=== PATIENT | female | born 1990 | race American Indian/Alaskan Native ===

== ENCOUNTER 2017-02-08 09:29 | Emergency (ER) | payer MEDICAID, OTHER ==
[2017-02-08 10:33] LABS: Hematocrit 38.2 % (30.3-42.9); Hemoglobin 12.8 gm/dl (10.1-14.3); Mean Corpuscular HGB Conc 34 % (30-34); Mean Corpuscular Hemoglobin 30 pg (28-32); Mean Corpuscular Volume 88 fl (79-97); Platelet Count 283 K/mm3 (140-440); Red Blood Count 4.31 M/mm3 (3.65-5.03); Red Cell Distribution Width 15.9 % (13.2-15.2); White Blood Count 4.8 K/mm3 (4.5-11.0)
[2017-02-08 11:08] LABS: Blastocytes % (Manual) 0 %
[2017-02-08 11:09] LABS: Diff Status Complete; RBC Morphology Normal
--- NOTE | 2017-02-08 11:49 | Ultrasound Report ---
ULTRASOUND OB LESS THAN 14 WEEKS FETUS ULTRASOUND OB TRANSVAGINAL HISTORY: Vaginal bleeding during . TECHNIQUE: Transabdominal and transvaginal ultrasound with color doppler interrogation. No comparison. The uterus measures 12 x 6 x 7 cm. No uterine mass. An intrauterine gestational sac containing a pole and yolk sac is identified. No heart rate could be detected on Doppler interrogation. [place]-rump length measures 17.8 mm which correlates with a 8 week, 2 day . Both ovaries are visualized. A 2.1 cm corpus luteum cyst in the left ovary is suspected. No pelvic fluid collection. IMPRESSION: Findings consistent with demise.
--- NOTE | 2017-02-08 11:49 | Ultrasound Report ---
ULTRASOUND OB LESS THAN 14 WEEKS FETUS ULTRASOUND OB TRANSVAGINAL HISTORY: Vaginal bleeding during . TECHNIQUE: Transabdominal and transvaginal ultrasound with color doppler interrogation. No comparison. The uterus measures 12 x 6 x 7 cm. No uterine mass. An intrauterine gestational sac containing a pole and yolk sac is identified. No heart rate could be detected on Doppler interrogation. [place]-rump length measures 17.8 mm which correlates with a 8 week, 2 day . Both ovaries are visualized. A 2.1 cm corpus luteum cyst in the left ovary is suspected. No pelvic fluid collection. IMPRESSION: Findings consistent with demise.
[2017-02-08 12:16] VITALS: BP 108/72
--- NOTE | 2017-02-08 12:19 | Emergency Department Report ---
HPI - General Chief Complaint: Urogenital-Female Time Seen by Provider: 02/08/17 11:31 - HPI HPI: 26 year-old female presents to the emergency department with a complaint of some light vaginal spotting/bleeding that started this morning while . The patient leaves she is about 9 weeks . She followed up with her AUTOMOTIVE HARDWARE ENGINEER, Dr. Arevalo, one week ago and had an ultrasound that allegedly was normal. She denies any abdominal pain or cramping. She is on vitamins. She has not taken anything for her symptoms. Presentation. She denies any fever, vomiting, dysuria, vaginal discharge. She is with one live child. No recent travel or sick contacts at home. ED Past Medical Hx - Past Medical History Previous Medical History?: Yes Hx Hypertension: No Hx Congestive Heart Failure: No Hx Diabetes: No Hx Deep Vein Thrombosis: No Hx Renal Disease: No Hx Sickle Cell Disease: No Hx Seizures: No Hx Asthma: No Hx COPD: No Hx HIV: No - Social History Smoking Status: Never Smoker Substance Use Type: None - Medications Home Medications: Home Medications Medication Instructions Recorded Confirmed Last Taken Type No Known Home Medications [No 03/20/14 03/20/14 Unknown History Reported Home Medications] ED Review of Systems ROS: Stated complaint: VAG BLEED/9WKS PREG Other details as noted in HPI Comment: All other systems reviewed and negative Constitutional: denies: chills, fever Eyes: denies: eye pain, eye discharge, vision change ENT: denies: ear pain, throat pain Respiratory: denies: cough, shortness of breath, wheezing Cardiovascular: denies: chest pain, palpitations Gastrointestinal: denies: abdominal pain, nausea, diarrhea Genitourinary: other (vaginal bleeding/spotting). denies: urgency, dysuria, discharge Musculoskeletal: denies: back pain, joint swelling, arthralgia Skin: denies: rash, lesions Neurological: denies: headache, weakness, paresthesias Physical Exam - Physical Exam Vital Signs: Vital Signs 02/08/17 02/08/17 09:46 12:15 Temperature 98.8 F 98 F Pulse Rate 83 77 Respiratory 20 18 Rate Blood Pressure 110/73 Blood Pressure 108/72 [Right] O2 Sat by Pulse 100 100 Oximetry Physical Exam: GENERAL: The patient is well-developed well-nourished. ENT: Normocephalic. Atraumatic. Patient has moist mucous membranes. EYES: Extraocular motions are intact. Pupils equal reactive to light bilaterally. NECK: Supple. Trachea is mid line. CHEST/LUNGS: Clear to auscultation. There is no respiratory distress noted. HEART/CARDIOVASCULAR: Regular rhythm. Regular rate. There is no gallop rub or murmur. ABDOMEN: Abdomen is soft, nontender. Patient has normal bowel sounds. There is no abdominal distention. SKIN: Skin is warm and dry. NEURO: The patient is awake, alert, and oriented. The patient is cooperative. The patient has no sensory or motor deficits. The patient has normal speech. MUSCULOSKELETAL: There is no tenderness or deformity. There is no limitation range of motion. There is no evidence of acute injury. ED Course Vital Signs 02/08/17 02/08/17 09:46 12:15 Temperature 98.8 F 98 F Pulse Rate 83 77 Respiratory 20 18 Rate Blood Pressure 110/73 Blood Pressure 108/72 [Right] O2 Sat by Pulse 100 100 Oximetry - Consultations Consultation #1: I spoke to the AUTOMOTIVE HARDWARE ENGINEER, Dr. Goode, call for Dr. Arevalo and she listened to the case presentation and says that the patient has an appointment already scheduled for tomorrow and therefore the patient is safe for discharge home to follow up with her appointment tomorrow where they will most likely repeat the ultrasound and do further evaluation. 02/08/17 18:06 ED Medical Decision Making - Lab Data Result diagrams: 02/08/17 10:13 - Radiology Data Radiology results: report reviewed Vaginal/obstetric ultrasound shows a gestational sac, yolk sac, and pole but there is no movement or heart rate with concern for demise. - Medical Decision Making 26-year-old female presents with some light vaginal spotting at about 9 weeks . Her beta hCG is only at 4400. There is no sign of urinary tract infection. Obstetric ultrasound shows concern for demise with a gestational sac, yolk sac, pole without movement or heart rate. Spoke with OB who says patient is safe for discharge home but should follow up with her scheduled appointment tomorrow. - Differential Diagnosis , threatened miscarriage, spontaneous miscarriage, demise Critical Care Time: No Critical care attestation.: If time is entered above; I have spent that time in minutes in the direct care of this critically ill patient, excluding procedure time. ED Disposition Clinical Impression: demise Disposition: DC-01 TO HOME OR SELFCARE Is pt being admited?: No Condition: Stable Instructions: Intrauterine Demise (ED) Additional Instructions: Follow-up with your AUTOMOTIVE HARDWARE ENGINEER tomorrow as previously scheduled. Return to the emergency Department with any worsening of your symptoms or any acute distress. Referrals: JOCELYN AREVALO MD [Staff Physician] - 02/09/17 Time of Disposition: 14:25
[2017-02-08 13:40] LABS: Bilirubin,Urine NEG (Negative); Blood,Urine NEG (Negative); Ketones,Urine TR mg/dL (Negative); Leukocyte Esterase,Urine NEG (Negative); Nitrite,Urine NEG (Negative); Protein,Urine <15 mg/dL mg/dL (Negative); RBC,Urine < 1.0 /HPF (0.0-6.0); Urobilinogen,Urine < 2.0 mg/dL (<2.0)
[2017-02-08 13:44] LABS: WBC,Urine < 1.0 /HPF (0.0-6.0)
== END 2017-02-08 14:44 | disposition home or self-care (01) ==
LOC: ED 09:29
DX: O26.851 Spotting complicating pregnancy, first trimester (principal); Z3A.09 9 weeks gestation of pregnancy
CPT/HCPCS: 36415; 76801; 76817; 81001; 84702; 84703; 85007; 85025; 86850; 86900; 86901

== ENCOUNTER 2018-01-31 19:42 | Outpatient (CLI) | payer MEDICAID, OTHER ==
[2018-01-31 20:34] VITALS: BP 132/77
[2018-01-31] MEDS ORDERED: LACTATED RINGERS 500 ML IV ONE (21:09)
== END 2018-01-31 21:45 | disposition home or self-care (01) ==
LOC: TRG 19:42
PROVIDERS: ATTEND Obstetrics & Gynecology
DX: O47.02 False labor before 37 completed weeks of gestation, second trimester (principal); O26.892 Other specified pregnancy related conditions, second trimester; R20.2 Paresthesia of skin; Z3A.28 28 weeks gestation of pregnancy; Z91.018 Allergy to other foods

== ENCOUNTER 2018-02-07 08:42 | Outpatient (CLI) | payer MEDICAID | END 2018-02-07 08:43 | disposition home or self-care (01) | LOC: VAS 08:42 | PROVIDERS: ATTEND Nurse Practitioner Women's Health | DX: M79.604 Pain in right leg (principal); M79.605 Pain in left leg; Z91.018 Allergy to other foods | CPT/HCPCS: 93970 ==

== ENCOUNTER 2018-03-22 22:29 | Inpatient (IN) | payer MEDICAID ==
[2018-03-22] MEDS ORDERED: LACTATED RINGERS 1,000 ML ONE (22:49)
[2018-03-22] MEDS ORDERED: LACTATED RINGERS 1,000 ML IV ONE (23:03)
[2018-03-23] MEDS ORDERED: BENADRYL PO PRN (00:23)
[2018-03-23] MEDS ORDERED: TYLENOL PO PRN (00:23)
[2018-03-23] MEDS ORDERED: MILK OF MAGNESIA PO PRN (00:23)
[2018-03-23] MEDS ORDERED: ZOFRAN IV PRN (00:23)
[2018-03-23] MEDS ORDERED: ALUM-MAG HYDROX-SIMETH 200-200-20MG/5ML PO PRN (00:23)
[2018-03-23] MEDS ORDERED: COLACE PO PRN (00:23)
[2018-03-23] MEDS ORDERED: DEEP SEA NS PRN (00:23)
[2018-03-23] MEDS ORDERED: AMBIEN PO PRN (00:23)
--- NOTE | 2018-03-23 00:33 | History and Physical Report ---
History of Present Illness Date of examination: 03/23/18 Chief complaint: cold symptoms, fever, ISIDRO and swollen feet History of present illness: EDC Calculations by LMP: 04/14/2018 Past History : 3 Term Births: 1 Premature Births: 0 Living Children: 1 Para: 1 Mult. Births: 0 Prev : 0 Prev. attempt? 0 Aborta: 1 Elect. Ab: 0 Spont. Ab: 1 Ectopics: 0 # 1 Delivery date: 03/21/2014 Weeks Gestation: 39 Delivery type: Vaginal Anesthesia type: epidural Delivery location: [facility] Infant Sex: female weight: 5.25 Comments: SGA # 2 Delivery date: 03/01/2017 Weeks Gestation: 8 Delivery type: SAB Comments: No D&C Past Medical History: Reviewed history from 06/30/2016 and no changes required: None Negative Past Medical History Past Surgical History: Reviewed history from 06/30/2016 and no changes required: None Negative Past Surgical History Family History Summary: Reviewed history Last on 01/22/2017 and no changes required:11/01/2017 Other family member - Has No Family History of Biliary Tract Cancer - Entered On : 06/30/2016 Other family member - Has No Family History of Breast Cancer - Entered On: 2016 Other family member - Has No Family History of Brain Cancer - Entered On: 2016 Other family member - Has No Family History of Colon Cancer - Entered On: 2016 Other family member - Has No Family History of DVT/PE on OCP - Entered On: 2016 Other family member - Has No Family History of Kidney/Urinary Tract Cancer - Entered On: 06/30/2016 Other family member - Has No Family History of Ovarvian Cancer - Entered On: 06/30 Other family member - Has No Family History of Pancreatic Cancer - Entered On: Other family member - Has No Family History of Stomach Cancer - Entered On: 2016 Other family member - Has No Family History of Small Bowel Cancer - Entered On: 06/30/2016 Other family member - Has No Family History of Uterine Cancer - Entered On: 2016 General Comments - FH: Family History of Hypertension- Mother No Family History of Breast Cancer No Family History of Cervical Cancer No Family History of Colon Cancer No Family History of Ovarvian Cancer No Family History of DVT/PE on OCP Social History: Patient is single student cosmetology Smoking History: Patient has never smoked. Risk Factors: Smoked Tobacco Use: Never smoker Drug use: no Alcohol use: yes Dietary Counseling: pn yes Past Medical History Abnormal PAP: negative Uterine Surgery (not C/S): negative Social Hx: Patient is single student cosmetology Smoking History: Patient has never smoked. Genetic History Congenital Heart Defect: Mom: no Dad: no Marcos Disease: Mom: no Dad: no Thalassemia Mom: no Dad: no Neural Tube Defect Mom: no Dad: no Down's Syndrome Mom: no Dad: no Byron-Sachs Mom: no Dad: no Sickle Cell Disease/Trait Mom: no Dad: no Hemophilia Mom: no Dad: no Muscular Dystrophy Mom: no Dad: no Cystic Fibrosis Mom: no Dad: no Joaquín Chorea Mom: no Dad: no Mental Retardation Mom: no Dad: no Fragile X Mom: no Dad: no Other Genetic/Chromosomal Disorder Mom: no Dad: no Child w/other defect Mom: no Dad: no Enviromental Exposures Xray Exposure: yes Exposure to Cat Liter: yes Active Medications (reviewed today): None Current Allergies (reviewed today): No known allergies Past History Past Medical History: no pertinent history Past Surgical History: no surgical history - Obstetrical History Expected Date of Delivery: 04/14/18 Actual Gestation: 36 Week(s) 6 Day(s) : 3 Para: 1 Hx # Term Pregnancies: 1 Number of Pregnancies: 0 Spontaneous Abortions: 1 Induced : 0 Number of Living Children: 1 Medications and Allergies Allergies Allergy/AdvReac Type Severity Reaction Status Date / Time banana [Banana] Allergy Itching Verified 03/20/14 18:27 Home Medications Medication Instructions Recorded Confirmed Last Taken Type No Known Home Medications [No 03/20/14 03/20/14 Unknown History Reported Home Medications] Review of Systems All systems: negative Constitutional: fever Ears, nose, mouth and throat: nasal congestion, headache Cardiovascular: edema (BLE) Respiratory: cough, congestion - Vital Signs Vital signs: Vital Signs Pulse BP 68 137/91 03/22/18 22:53 03/22/18 22:53 Temp Pulse Resp BP Pulse Ox 98.7 F 68 18 143/88 99 03/22/18 23:01 03/23/18 00:26 03/22/18 23:00 03/23/18 00:25 03/23/18 00:26 - Physical Exam Cardiovascular: Regular rate Lungs: Positive: Clear to auscultation, Normal air movement Abdomen: Positive: normal appearance Genitourinary (Female): Positive: normal external genitalia Vulva: both: normal Extremities: Positive: edema Deep Tendon Reflex Grade: Dull/Diminished +1 - Obstetrical FHR: auscultation normal Uterine Contraction Monitor Mode: External Results All other labs normal. Assessment and Plan 27 y/o @ 36+6 weeks gestation; seen in triage for ISIDRO & cold like symptoms x 1 day, fever tonight (pt states she felt warm but did not check temp with a thermometer.) Upon arrival, oral and axilary temps normal, BLE edema and labial b/p's noted. Plan to admit for obs, and 24h urine, along with supportive care for URI symptoms. pre-e labs ordered but not yet resulted. Dr. Starks updated on patient's status. Orders in EMR. - Patient Problems (1) 36 weeks gestation of Current Visit: Yes Status: Acute (2) Upper respiratory infection with cough and congestion Current Visit: Yes Status: Acute (3) Elevated blood pressure reading without diagnosis of hypertension Current Visit: Yes Status: Acute (4) GBS (group B Streptococcus carrier), +RV culture, currently Current Visit: Yes Status: Acute
[2018-03-23 01:00] LABS: Hematocrit 37.8 % (30.3-42.9); Hemoglobin 12.9 gm/dl (10.1-14.3); Mean Corpuscular HGB Conc 34 % (30-34); Mean Corpuscular Hemoglobin 32 pg (28-32); Mean Corpuscular Volume 95 fl (79-97); Platelet Count 255 K/mm3 (140-440); Red Blood Count 3.97 M/mm3 (3.65-5.03); Red Cell Distribution Width 14.9 % (13.2-15.2)
[2018-03-23] MEDS ORDERED: LACTATED RINGERS 1,000 ML IV SCH (01:00)
[2018-03-23 01:06] LABS: Bacteria,Urine 1+ /HPF (Negative); Bilirubin,Urine NEG (Negative); Blood,Urine NEG (Negative); Color,Urine Yellow (Yellow); Mucus,Urine FEW /HPF; Urobilinogen,Urine < 2.0 mg/dL (<2.0)
[2018-03-23 01:29] LABS: Alanine Aminotransferase 24 units/L (7-56)
[2018-03-23 02:56] LABS: Platelet Estimate Consistent w Auto; RBC Morphology Normal; Total Cells Counted 100
[2018-03-23 03:05] LABS: Uric Acid 5.6 mg/dL (3.5-7.6)
--- NOTE | 2018-03-23 09:22 | Progress Note ---
Assessment and Plan - Patient Problems (1) 36 weeks gestation of Current Visit: Yes Status: Acute (2) Elevated blood pressure reading without diagnosis of hypertension Current Visit: Yes Status: Acute Plan to address problem: 24ghour urine to be completed at [facility] Preeclampsia vs GHTN explained, indications for delivery and plan of care discussed, questions encouraged and answered, she voiced understanding and agrees with plan of care (3) GBS (group B Streptococcus carrier), +RV culture, currently Current Visit: Yes Status: Acute (4) Upper respiratory infection with cough and congestion Current Visit: Yes Status: Acute Subjective - Subjective Date of service: 03/23/18 Principal diagnosis: IUP@36 6/7wga, elevated BP's Patient reports: movement normal, no new complaints Objective - Vital Signs Vital Signs: Vital Signs - 12hr 03/22/18 03/22/18 03/22/18 22:53 23:00 23:01 Temperature 98.6 F 98.7 F Pulse Rate 68 Respiratory 18 Rate Blood Pressure 137/91 Blood Pressure [Right] O2 Sat by Pulse Oximetry 03/22/18 03/22/18 03/22/18 23:04 23:09 23:14 Temperature Pulse Rate 69 78 63 Respiratory Rate Blood Pressure Blood Pressure [Right] O2 Sat by Pulse 98 99 98 Oximetry 03/22/18 03/22/18 03/22/18 23:17 23:19 23:23 Temperature Pulse Rate 57 L 61 64 Respiratory Rate Blood Pressure 154/94 Blood Pressure [Right] O2 Sat by Pulse 99 99 Oximetry 03/22/18 03/22/18 03/22/18 23:24 23:28 23:34 Temperature Pulse Rate 65 69 66 Respiratory Rate Blood Pressure 133/93 Blood Pressure [Right] O2 Sat by Pulse 99 98 Oximetry 03/22/18 03/23/18 03/23/18 23:40 00:02 00:06 Temperature Pulse Rate 68 67 67 Respiratory Rate Blood Pressure 138/87 Blood Pressure [Right] O2 Sat by Pulse 99 98 Oximetry 03/23/18 03/23/18 03/23/18 00:09 00:11 00:16 Temperature Pulse Rate 66 67 65 Respiratory Rate Blood Pressure 131/87 Blood Pressure [Right] O2 Sat by Pulse 99 99 Oximetry 03/23/18 03/23/18 03/23/18 00:22 00:25 00:26 Temperature Pulse Rate 87 65 68 Respiratory Rate Blood Pressure 143/88 Blood Pressure [Right] O2 Sat by Pulse 98 99 Oximetry 03/23/18 03/23/18 03/23/18 00:31 00:36 00:41 Temperature Pulse Rate 62 64 69 Respiratory Rate Blood Pressure 139/91 Blood Pressure [Right] O2 Sat by Pulse 98 98 98 Oximetry 03/23/18 03/23/18 03/23/18 00:47 00:52 00:54 Temperature Pulse Rate 68 65 63 Respiratory Rate Blood Pressure 135/90 Blood Pressure [Right] O2 Sat by Pulse 98 99 Oximetry 03/23/18 03/23/18 03/23/18 00:56 00:58 02:08 Temperature Pulse Rate 64 59 L Respiratory 18 Rate Blood Pressure Blood Pressure [Right] O2 Sat by Pulse 98 98 Oximetry 03/23/18 03/23/18 03/23/18 02:13 02:26 02:31 Temperature Pulse Rate 63 72 75 Respiratory Rate Blood Pressure Blood Pressure [Right] O2 Sat by Pulse 97 90 95 Oximetry 03/23/18 03/23/18 03/23/18 02:34 02:36 02:41 Temperature Pulse Rate 78 70 68 Respiratory Rate Blood Pressure Blood Pressure [Right] O2 Sat by Pulse 94 95 95 Oximetry 03/23/18 03/23/18 03/23/18 02:45 02:46 02:51 Temperature Pulse Rate 78 62 67 Respiratory Rate Blood Pressure Blood Pressure [Right] O2 Sat by Pulse 93 96 96 Oximetry 03/23/18 03/23/18 03/23/18 02:56 02:59 03:01 Temperature Pulse Rate 61 70 68 Respiratory Rate Blood Pressure Blood Pressure [Right] O2 Sat by Pulse 97 93 96 Oximetry 03/23/18 03/23/18 03/23/18 03:06 03:11 03:12 Temperature Pulse Rate 65 69 66 Respiratory Rate Blood Pressure Blood Pressure [Right] O2 Sat by Pulse 96 95 93 Oximetry 03/23/18 03/23/18 03/23/18 03:16 03:21 03:26 Temperature Pulse Rate 63 65 67 Respiratory Rate Blood Pressure Blood Pressure [Right] O2 Sat by Pulse 96 95 96 Oximetry 03/23/18 03/23/18 03/23/18 03:31 03:36 03:38 Temperature Pulse Rate 66 70 64 Respiratory Rate Blood Pressure Blood Pressure [Right] O2 Sat by Pulse 95 95 94 Oximetry 03/23/18 03/23/18 03/23/18 03:41 03:46 03:49 Temperature Pulse Rate 65 69 63 Respiratory Rate Blood Pressure Blood Pressure [Right] O2 Sat by Pulse 95 95 94 Oximetry 03/23/18 03/23/18 03/23/18 03:51 04:38 04:55 Temperature Pulse Rate 67 78 73 Respiratory Rate Blood Pressure Blood Pressure [Right] O2 Sat by Pulse 95 96 97 Oximetry 03/23/18 03/23/18 03/23/18 04:56 05:00 05:05 Temperature 98.2 F Pulse Rate 62 78 61 Respiratory 16 Rate Blood Pressure 144/72 Blood Pressure [Right] O2 Sat by Pulse 97 97 Oximetry 03/23/18 03/23/18 03/23/18 05:10 05:15 05:20 Temperature Pulse Rate 61 73 74 Respiratory Rate Blood Pressure Blood Pressure [Right] O2 Sat by Pulse 98 98 98 Oximetry 03/23/18 03/23/18 03/23/18 05:25 05:30 05:35 Temperature Pulse Rate 61 60 65 Respiratory Rate Blood Pressure Blood Pressure [Right] O2 Sat by Pulse 97 96 96 Oximetry 03/23/18 03/23/18 03/23/18 05:40 05:45 05:50 Temperature Pulse Rate 55 L 66 60 Respiratory Rate Blood Pressure Blood Pressure [Right] O2 Sat by Pulse 97 97 97 Oximetry 03/23/18 03/23/18 03/23/18 05:55 06:00 06:05 Temperature Pulse Rate 64 77 61 Respiratory Rate Blood Pressure Blood Pressure [Right] O2 Sat by Pulse 97 96 97 Oximetry 03/23/18 03/23/18 03/23/18 06:10 06:15 06:21 Temperature Pulse Rate 64 66 64 Respiratory Rate Blood Pressure Blood Pressure [Right] O2 Sat by Pulse 97 99 98 Oximetry 03/23/18 03/23/18 03/23/18 06:25 06:30 06:35 Temperature Pulse Rate 65 64 81 Respiratory Rate Blood Pressure Blood Pressure [Right] O2 Sat by Pulse 98 98 100 Oximetry 03/23/18 03/23/18 03/23/18 06:41 06:45 06:50 Temperature Pulse Rate 61 67 71 Respiratory Rate Blood Pressure Blood Pressure [Right] O2 Sat by Pulse 98 97 98 Oximetry 03/23/18 03/23/18 03/23/18 06:55 07:00 07:05 Temperature Pulse Rate 72 68 72 Respiratory Rate Blood Pressure Blood Pressure [Right] O2 Sat by Pulse 98 97 97 Oximetry 03/23/18 03/23/18 03/23/18 07:10 07:16 07:20 Temperature Pulse Rate 61 63 63 Respiratory Rate Blood Pressure Blood Pressure [Right] O2 Sat by Pulse 97 97 97 Oximetry 03/23/18 03/23/18 03/23/18 07:26 07:31 07:35 Temperature Pulse Rate 74 79 78 Respiratory Rate Blood Pressure Blood Pressure [Right] O2 Sat by Pulse 98 97 96 Oximetry 03/23/18 03/23/18 03/23/18 07:40 07:46 07:51 Temperature Pulse Rate 60 61 77 Respiratory Rate Blood Pressure Blood Pressure [Right] O2 Sat by Pulse 97 97 97 Oximetry 03/23/18 03/23/18 03/23/18 07:56 08:00 08:01 Temperature 97.2 F L Pulse Rate 60 69 59 L Respiratory 16 Rate Blood Pressure 135/90 Blood Pressure 135/90 [Right] O2 Sat by Pulse 97 94 98 Oximetry 03/23/18 03/23/18 03/23/18 08:06 08:11 08:19 Temperature Pulse Rate 65 78 Respiratory Rate Blood Pressure Blood Pressure [Right] O2 Sat by Pulse 97 77 L 81 L Oximetry 03/23/18 03/23/18 03/23/18 08:20 08:25 08:30 Temperature Pulse Rate 101 H 80 83 Respiratory Rate Blood Pressure Blood Pressure [Right] O2 Sat by Pulse 97 94 96 Oximetry 03/23/18 03/23/18 03/23/18 08:35 08:40 08:45 Temperature Pulse Rate 78 66 66 Respiratory Rate Blood Pressure Blood Pressure [Right] O2 Sat by Pulse 96 95 96 Oximetry 03/23/18 03/23/18 03/23/18 08:50 08:55 08:57 Temperature Pulse Rate 82 69 93 H Respiratory Rate Blood Pressure Blood Pressure [Right] O2 Sat by Pulse 96 97 83 L Oximetry 03/23/18 03/23/18 03/23/18 09:00 09:05 09:10 Temperature Pulse Rate 73 74 80 Respiratory Rate Blood Pressure Blood Pressure [Right] O2 Sat by Pulse 96 96 97 Oximetry 03/23/18 09:15 Temperature Pulse Rate 80 Respiratory Rate Blood Pressure Blood Pressure [Right] O2 Sat by Pulse 96 Oximetry - Exam Breasts: deferred Cardiovascular: Regular rate Lungs: Clear to auscultation, Normal air movement Abdomen: Present: normal appearance, soft. Absent: distention, tenderness, guarding Uterus: Present: fundal height above umbilicus. Absent: tenderness FHR: category 1 Uterine Contraction Monitor Mode: External Uterine Contraction Pattern: Irregular Extremities: edema (trace) Deep Tendon Reflex Grade: Normal +2 - Labs Labs: Abnormal Labs 03/22/18 03/22/18 00:34 00:34 Monocytes % (Manual) 9.0 H Eosinophils % (Manual) 11.0 H Basophils % (Manual) 2.0 H Eosinophils # (Manual) 0.9 H Basophils # (Manual) 0.2 H Lactate Dehydrogenase 247 H Laboratory Results - last 24 hr 03/22/18 03/22/18 03/22/18 00:34 00:34 00:34 WBC 8.2 RBC 3.97 Hgb 12.9 Hct 37.8 MCV 95 MCH 32 MCHC 34 RDW 14.9 Plt Count 255 Add Manual Diff Complete Total Counted 100 Seg Neuts % (Manual) 53.0 Band Neutrophils % 0 Lymphocytes % (Manual) 25.0 Reactive Lymphs % (Man) 0 Monocytes % (Manual) 9.0 H Eosinophils % (Manual) 11.0 H Basophils % (Manual) 2.0 H Metamyelocytes % 0 Myelocytes % 0 Promyelocytes % 0 Blast Cells % 0 Nucleated RBC % Not Reportable Seg Neutrophils # Man 4.3 Band Neutrophils # 0.0 Lymphocytes # (Manual) 2.1 Abs React Lymphs (Man) 0.0 Monocytes # (Manual) 0.7 Eosinophils # (Manual) 0.9 H Basophils # (Manual) 0.2 H Metamyelocytes # 0.0 Myelocytes # 0.0 Promyelocytes # 0.0 Blast Cells # 0.0 WBC Morphology Not Reportable Hypersegmented Neuts Not Reportable Hyposegmented Neuts Not Reportable Hypogranular Neuts Not Reportable Smudge Cells Not Reportable Toxic Granulation Not Reportable Toxic Vacuolation Not Reportable Dohle Bodies Not Reportable Pelger-Huet Anomaly Not Reportable Vivi Rods Not Reportable Platelet Estimate Consistent w auto Clumped Platelets Not Reportable Plt Clumps, EDTA Not Reportable Large Platelets Not Reportable Giant Platelets Not Reportable Platelet Satelliting Not Reportable Plt Morphology Comment Not Reportable RBC Morphology Normal Dimorphic RBCs Not Reportable Polychromasia Not Reportable Hypochromasia Not Reportable Poikilocytosis Not Reportable Anisocytosis Not Reportable Microcytosis Not Reportable Macrocytosis Not Reportable Spherocytes Not Reportable Pappenheimer Bodies Not Reportable Sickle Cells Not Reportable Target Cells Not Reportable Tear Drop Cells Not Reportable Ovalocytes Not Reportable Helmet Cells Not Reportable [place]-Skillman Bodies Not Reportable Olean Rings Not Reportable [place] Cells Not Reportable Bite Cells Not Reportable Crenated Cell Not Reportable Elliptocytes Not Reportable Acanthocytes (Spur) Not Reportable Rouleaux Not Reportable Hemoglobin C Crystals Not Reportable Schistocytes Not Reportable Malaria parasites Not Reportable Deondre Bodies Not Reportable Hem Pathologist Commnt No Creatinine 0.8 Estimated GFR > 60 Uric Acid 5.6 AST 28 ALT 24 Lactate Dehydrogenase 247 H Urine Color Yellow Urine Turbidity Cloudy Urine pH 6.0 Ur Specific [place] 1.018 Urine Protein 100 mg/dl Urine Glucose (UA) Neg Urine Ketones Neg Urine Blood Neg Urine Nitrite Neg Urine Bilirubin Neg Urine Urobilinogen < 2.0 Ur Leukocyte Esterase Sm Urine WBC (Auto) 5.0 Urine RBC (Auto) 4.0 U Epithel Cells (Auto) 11.0 Urine Bacteria (Auto) 1+ Urine Mucus Few
[2018-03-23] MEDS: PRENATAL VITAMIN PO SCH (09:48)
[2018-03-24] MEDS ORDERED: NARCAN 0.4 MG/1 ML IV PRN (09:50)
[2018-03-24] MEDS ORDERED: BRETHINE SUB-Q PRN (09:50)
[2018-03-24] MEDS ORDERED: BRETHINE IVP PRN (09:50)
[2018-03-24] MEDS ORDERED: XYLOCAINE 2% INFILTRATI ONE (09:50)
[2018-03-24] MEDS ORDERED: STADOL IV PRN (09:50)
[2018-03-24] MEDS ORDERED: SUBLIMAZE IV PRN (09:50)
[2018-03-24] MEDS ORDERED: PITOCin/NS 20 UNIT/1000ML DRIP 20 UNITS/1,000 ML BAG IV SCH (10:00)
[2018-03-24] MEDS ORDERED: POLYCILLIN/NS 2 GM/100 ML 2 GM/100 ML BAG IV ONE (10:00)
[2018-03-24] MEDS ORDERED: PITOCin/NS 30 UNIT/500ML 30 UNITS/500 ML BAG IV SCH ×2 (10:00→11:00)
[2018-03-24] MEDS ORDERED: TYLENOL PO PRN (10:06)
--- NOTE | 2018-03-24 10:21 | Progress Note ---
Assessment and Plan Preeclampsia explained, plan of care discussed, questions answered, she voiced understanding - Patient Problems (1) 37 weeks gestation of Current Visit: Yes Status: Acute (2) Pre-eclampsia Current Visit: Yes Status: Acute Qualifiers: Trimester: third trimester Qualified Code(s): O14.93 - Unspecified pre- eclampsia, third trimester (3) GBS (group B Streptococcus carrier), +RV culture, currently Current Visit: Yes Status: Acute (4) Upper respiratory infection with cough and congestion Current Visit: Yes Status: Resolved Subjective - Subjective Date of service: 03/24/18 Principal diagnosis: IUP@37 wga, Preeclampsia Patient reports: movement normal, no new complaints Objective - Vital Signs Vital Signs: Vital Signs - 12hr 03/23/18 03/23/18 03/23/18 22:14 22:19 22:24 Temperature Pulse Rate 76 73 84 Respiratory Rate Blood Pressure Blood Pressure [Right] O2 Sat by Pulse 97 97 96 Oximetry 03/23/18 03/23/18 03/23/18 22:29 22:34 23:47 Temperature Pulse Rate 83 82 77 Respiratory Rate Blood Pressure Blood Pressure [Right] O2 Sat by Pulse 97 96 99 Oximetry 03/23/18 03/23/18 03/24/18 23:52 23:57 00:00 Temperature 97.5 F L Pulse Rate 80 78 78 Respiratory 18 Rate Blood Pressure Blood Pressure 129/87 [Right] O2 Sat by Pulse 98 97 100 Oximetry 03/24/18 03/24/18 03/24/18 00:02 00:06 00:07 Temperature Pulse Rate 80 81 79 Respiratory Rate Blood Pressure 129/87 Blood Pressure [Right] O2 Sat by Pulse 98 97 Oximetry 03/24/18 03/24/18 03/24/18 00:12 00:17 00:22 Temperature Pulse Rate 71 83 75 Respiratory Rate Blood Pressure Blood Pressure [Right] O2 Sat by Pulse 98 97 96 Oximetry 03/24/18 03/24/18 03/24/18 00:27 00:32 00:37 Temperature Pulse Rate 85 83 73 Respiratory Rate Blood Pressure Blood Pressure [Right] O2 Sat by Pulse 97 98 98 Oximetry 03/24/18 03/24/18 03/24/18 00:41 00:42 00:56 Temperature Pulse Rate 71 88 40 L Respiratory Rate Blood Pressure Blood Pressure [Right] O2 Sat by Pulse 86 97 97 Oximetry 03/24/18 03/24/18 03/24/18 01:01 01:06 01:11 Temperature Pulse Rate 65 71 68 Respiratory Rate Blood Pressure Blood Pressure [Right] O2 Sat by Pulse 97 96 96 Oximetry 03/24/18 03/24/18 03/24/18 01:12 01:16 01:21 Temperature Pulse Rate 67 66 73 Respiratory Rate Blood Pressure Blood Pressure [Right] O2 Sat by Pulse 94 96 95 Oximetry 03/24/18 03/24/18 03/24/18 01:24 01:26 01:31 Temperature Pulse Rate 87 97 H 69 Respiratory Rate Blood Pressure Blood Pressure [Right] O2 Sat by Pulse 92 95 95 Oximetry 03/24/18 03/24/18 03/24/18 01:35 01:36 01:41 Temperature Pulse Rate 84 72 58 L Respiratory Rate Blood Pressure Blood Pressure [Right] O2 Sat by Pulse 93 95 95 Oximetry 03/24/18 03/24/18 03/24/18 01:46 01:51 01:54 Temperature Pulse Rate 71 71 66 Respiratory Rate Blood Pressure Blood Pressure [Right] O2 Sat by Pulse 95 95 94 Oximetry 03/24/18 03/24/18 03/24/18 01:56 02:01 02:06 Temperature Pulse Rate 67 65 74 Respiratory Rate Blood Pressure Blood Pressure [Right] O2 Sat by Pulse 95 95 96 Oximetry 03/24/18 03/24/18 03/24/18 02:11 02:16 02:21 Temperature Pulse Rate 70 67 62 Respiratory Rate Blood Pressure Blood Pressure [Right] O2 Sat by Pulse 97 95 96 Oximetry 03/24/18 03/24/18 03/24/18 02:26 02:31 02:33 Temperature Pulse Rate 62 60 59 L Respiratory Rate Blood Pressure Blood Pressure [Right] O2 Sat by Pulse 97 96 94 Oximetry 03/24/18 03/24/18 03/24/18 02:36 02:41 02:46 Temperature Pulse Rate 63 60 62 Respiratory Rate Blood Pressure Blood Pressure [Right] O2 Sat by Pulse 95 95 94 Oximetry 03/24/18 03/24/18 03/24/18 02:47 02:51 02:56 Temperature Pulse Rate 64 88 95 H Respiratory Rate Blood Pressure Blood Pressure [Right] O2 Sat by Pulse 94 96 95 Oximetry 03/24/18 03/24/18 03/24/18 03:01 03:13 03:18 Temperature Pulse Rate 68 101 H Respiratory Rate Blood Pressure Blood Pressure [Right] O2 Sat by Pulse 94 95 94 Oximetry 03/24/18 03/24/18 03/24/18 03:19 03:23 03:28 Temperature Pulse Rate 92 H 76 76 Respiratory Rate Blood Pressure 123/69 Blood Pressure [Right] O2 Sat by Pulse 92 94 95 Oximetry 03/24/18 03/24/18 03/24/18 03:33 03:38 03:42 Temperature Pulse Rate 67 70 61 Respiratory Rate Blood Pressure Blood Pressure [Right] O2 Sat by Pulse 96 95 94 Oximetry 03/24/18 03/24/18 03/24/18 03:43 03:48 03:53 Temperature Pulse Rate 60 80 81 Respiratory Rate Blood Pressure Blood Pressure [Right] O2 Sat by Pulse 94 96 96 Oximetry 03/24/18 03/24/18 03/24/18 03:58 04:00 04:03 Temperature 98 F Pulse Rate 62 80 65 Respiratory 18 Rate Blood Pressure Blood Pressure 127/90 [Right] O2 Sat by Pulse 96 99 96 Oximetry 03/24/18 03/24/18 03/24/18 04:08 04:13 04:18 Temperature Pulse Rate 70 68 66 Respiratory Rate Blood Pressure Blood Pressure [Right] O2 Sat by Pulse 97 96 95 Oximetry 03/24/18 03/24/18 03/24/18 04:23 04:26 04:28 Temperature Pulse Rate 63 62 67 Respiratory Rate Blood Pressure Blood Pressure [Right] O2 Sat by Pulse 96 94 97 Oximetry 03/24/18 03/24/18 03/24/18 04:33 04:38 04:43 Temperature Pulse Rate 63 60 63 Respiratory Rate Blood Pressure Blood Pressure [Right] O2 Sat by Pulse 97 95 95 Oximetry 03/24/18 03/24/18 03/24/18 04:48 04:53 04:58 Temperature Pulse Rate 62 67 63 Respiratory Rate Blood Pressure Blood Pressure [Right] O2 Sat by Pulse 96 96 95 Oximetry 03/24/18 03/24/18 03/24/18 05:03 05:08 05:11 Temperature Pulse Rate 66 67 60 Respiratory Rate Blood Pressure Blood Pressure [Right] O2 Sat by Pulse 95 96 94 Oximetry 03/24/18 03/24/18 03/24/18 05:13 05:18 05:39 Temperature Pulse Rate 70 71 80 Respiratory Rate Blood Pressure Blood Pressure [Right] O2 Sat by Pulse 97 97 97 Oximetry 03/24/18 03/24/18 03/24/18 05:44 05:49 05:54 Temperature Pulse Rate 65 60 55 L Respiratory Rate Blood Pressure Blood Pressure [Right] O2 Sat by Pulse 96 95 98 Oximetry 03/24/18 03/24/18 03/24/18 05:57 05:59 06:02 Temperature Pulse Rate 59 L 52 L 68 Respiratory Rate Blood Pressure Blood Pressure [Right] O2 Sat by Pulse 93 95 94 Oximetry 03/24/18 03/24/18 03/24/18 06:04 06:08 06:09 Temperature Pulse Rate 73 56 L 64 Respiratory Rate Blood Pressure Blood Pressure [Right] O2 Sat by Pulse 95 93 97 Oximetry 03/24/18 03/24/18 03/24/18 06:14 06:19 06:21 Temperature Pulse Rate 63 60 65 Respiratory Rate Blood Pressure Blood Pressure [Right] O2 Sat by Pulse 95 95 94 Oximetry 03/24/18 03/24/18 03/24/18 06:24 06:29 06:32 Temperature Pulse Rate 65 58 L 68 Respiratory Rate Blood Pressure Blood Pressure [Right] O2 Sat by Pulse 95 97 94 Oximetry 03/24/18 03/24/18 03/24/18 06:34 06:38 06:39 Temperature Pulse Rate 59 L 59 L 69 Respiratory Rate Blood Pressure Blood Pressure [Right] O2 Sat by Pulse 96 94 94 Oximetry 03/24/18 03/24/18 03/24/18 06:43 06:44 06:49 Temperature Pulse Rate 56 L 59 L 62 Respiratory Rate Blood Pressure Blood Pressure [Right] O2 Sat by Pulse 94 95 97 Oximetry 03/24/18 03/24/18 03/24/18 07:01 07:06 07:09 Temperature Pulse Rate 64 60 60 Respiratory Rate Blood Pressure Blood Pressure [Right] O2 Sat by Pulse 85 96 94 Oximetry 03/24/18 03/24/18 03/24/18 07:11 07:16 07:21 Temperature Pulse Rate 62 57 L 57 L Respiratory Rate Blood Pressure Blood Pressure [Right] O2 Sat by Pulse 95 95 96 Oximetry 03/24/18 03/24/18 03/24/18 07:26 07:30 07:31 Temperature Pulse Rate 60 59 L 62 Respiratory Rate Blood Pressure Blood Pressure [Right] O2 Sat by Pulse 95 94 95 Oximetry 03/24/18 03/24/18 03/24/18 07:36 07:40 07:41 Temperature Pulse Rate 61 58 L 60 Respiratory Rate Blood Pressure Blood Pressure [Right] O2 Sat by Pulse 95 94 94 Oximetry 03/24/18 03/24/18 03/24/18 07:45 07:46 07:50 Temperature Pulse Rate 62 59 L 69 Respiratory Rate Blood Pressure Blood Pressure [Right] O2 Sat by Pulse 94 95 93 Oximetry 03/24/18 03/24/18 03/24/18 07:51 07:55 07:56 Temperature Pulse Rate 65 64 59 L Respiratory Rate Blood Pressure Blood Pressure [Right] O2 Sat by Pulse 95 92 97 Oximetry 03/24/18 03/24/18 03/24/18 08:02 08:03 08:04 Temperature 97.7 F Pulse Rate 83 71 75 Respiratory 15 Rate Blood Pressure 135/83 137/86 Blood Pressure 137/86 [Right] O2 Sat by Pulse 97 98 Oximetry 03/24/18 03/24/18 03/24/18 08:07 08:09 08:12 Temperature Pulse Rate 68 65 70 Respiratory Rate Blood Pressure Blood Pressure [Right] O2 Sat by Pulse 98 92 97 Oximetry 03/24/18 03/24/18 03/24/18 08:17 08:22 08:25 Temperature Pulse Rate 61 66 79 Respiratory Rate Blood Pressure Blood Pressure [Right] O2 Sat by Pulse 96 97 80 L Oximetry - Exam Breasts: deferred Lungs: Normal air movement Abdomen: Present: soft Vulva: both: normal Uterus: Present: fundal height above umbilicus. Absent: tenderness FHR: category 1 Uterine Contraction Monitor Mode: External Cervical Dilatation: 2 Cervical Effacement Percentage: 70 station: -2, midline, soft Uterine Contraction Pattern: Absent Extremities: normal Deep Tendon Reflex Grade: Normal +2 - Labs Labs: Abnormal Labs 03/22/18 03/22/18 03/23/18 00:34 00:34 19:42 Monocytes % (Manual) 9.0 H Eosinophils % (Manual) 11.0 H Basophils % (Manual) 2.0 H Eosinophils # (Manual) 0.9 H Basophils # (Manual) 0.2 H Lactate Dehydrogenase 247 H Ur Total Protein 24 Hr 662.20 H Urine Total Protein 22 H Laboratory Results - last 24 hr 03/23/18 19:42 Urine Total Volume 3010 Ur Total Protein 24 Hr 662.20 H Urine Total Protein 22 H
[2018-03-24] MEDS ORDERED: APRESOLINE IV PRN (10:36)
[2018-03-24] MEDS: PRENATAL VITAMIN PO SCH (10:38)
[2018-03-24] MEDS: LACTATED RINGERS 1,000 ML IV SCH ×2 (10:38→14:48)
[2018-03-24 10:57] LABS: Hematocrit 36.8 % (30.3-42.9); Hemoglobin 12.4 gm/dl (10.1-14.3); Mean Corpuscular HGB Conc 34 % (30-34); Mean Corpuscular Hemoglobin 32 pg (28-32); Mean Corpuscular Volume 95 fl (79-97); Platelet Count 232 K/mm3 (140-440); Red Blood Count 3.89 M/mm3 (3.65-5.03); Red Cell Distribution Width 14.8 % (13.2-15.2)
[2018-03-24] MEDS ORDERED: LACTATED RINGERS 1,000 ML IV SCH ×2 (11:00→20:11)
[2018-03-24] MEDS ORDERED: MAGNESIUM SULFATE 4GM/100ML 4 GM/100 ML BAG IV ONE (11:30)
[2018-03-24] MEDS ORDERED: MAGNESIUM SULFATE 40GM/1000ML 40 GM/1,000 ML BAG IV SCH (12:00)
--- NOTE | 2018-03-24 12:48 | Progress Note ---
Assessment and Plan - Patient Problems (1) 37 weeks gestation of Current Visit: Yes Status: Acute (2) Pre-eclampsia Current Visit: Yes Status: Acute Qualifiers: Trimester: third trimester Qualified Code(s): O14.93 - Unspecified pre- eclampsia, third trimester (3) GBS (group B Streptococcus carrier), +RV culture, currently Current Visit: Yes Status: Acute (4) Upper respiratory infection with cough and congestion Current Visit: Yes Status: Resolved Subjective - Subjective Principal diagnosis: IUP@37 wga, Preeclampsia Patient reports: movement normal, contractions, no new complaints Objective - Vital Signs Vital Signs: Vital Signs - 12hr 03/24/18 03/24/18 03/24/18 00:56 01:01 01:06 Temperature Pulse Rate 40 L 65 71 Respiratory Rate Blood Pressure Blood Pressure [Right] O2 Sat by Pulse 97 97 96 Oximetry 03/24/18 03/24/18 03/24/18 01:11 01:12 01:16 Temperature Pulse Rate 68 67 66 Respiratory Rate Blood Pressure Blood Pressure [Right] O2 Sat by Pulse 96 94 96 Oximetry 03/24/18 03/24/18 03/24/18 01:21 01:24 01:26 Temperature Pulse Rate 73 87 97 H Respiratory Rate Blood Pressure Blood Pressure [Right] O2 Sat by Pulse 95 92 95 Oximetry 03/24/18 03/24/18 03/24/18 01:31 01:35 01:36 Temperature Pulse Rate 69 84 72 Respiratory Rate Blood Pressure Blood Pressure [Right] O2 Sat by Pulse 95 93 95 Oximetry 03/24/18 03/24/18 03/24/18 01:41 01:46 01:51 Temperature Pulse Rate 58 L 71 71 Respiratory Rate Blood Pressure Blood Pressure [Right] O2 Sat by Pulse 95 95 95 Oximetry 03/24/18 03/24/18 03/24/18 01:54 01:56 02:01 Temperature Pulse Rate 66 67 65 Respiratory Rate Blood Pressure Blood Pressure [Right] O2 Sat by Pulse 94 95 95 Oximetry 03/24/18 03/24/18 03/24/18 02:06 02:11 02:16 Temperature Pulse Rate 74 70 67 Respiratory Rate Blood Pressure Blood Pressure [Right] O2 Sat by Pulse 96 97 95 Oximetry 03/24/18 03/24/18 03/24/18 02:21 02:26 02:31 Temperature Pulse Rate 62 62 60 Respiratory Rate Blood Pressure Blood Pressure [Right] O2 Sat by Pulse 96 97 96 Oximetry 03/24/18 03/24/18 03/24/18 02:33 02:36 02:41 Temperature Pulse Rate 59 L 63 60 Respiratory Rate Blood Pressure Blood Pressure [Right] O2 Sat by Pulse 94 95 95 Oximetry 03/24/18 03/24/18 03/24/18 02:46 02:47 02:51 Temperature Pulse Rate 62 64 88 Respiratory Rate Blood Pressure Blood Pressure [Right] O2 Sat by Pulse 94 94 96 Oximetry 03/24/18 03/24/18 03/24/18 02:56 03:01 03:13 Temperature Pulse Rate 95 H 68 101 H Respiratory Rate Blood Pressure Blood Pressure [Right] O2 Sat by Pulse 95 94 95 Oximetry 03/24/18 03/24/18 03/24/18 03:18 03:19 03:23 Temperature Pulse Rate 92 H 76 Respiratory Rate Blood Pressure 123/69 Blood Pressure [Right] O2 Sat by Pulse 94 92 94 Oximetry 03/24/18 03/24/18 03/24/18 03:28 03:33 03:38 Temperature Pulse Rate 76 67 70 Respiratory Rate Blood Pressure Blood Pressure [Right] O2 Sat by Pulse 95 96 95 Oximetry 03/24/18 03/24/18 03/24/18 03:42 03:43 03:48 Temperature Pulse Rate 61 60 80 Respiratory Rate Blood Pressure Blood Pressure [Right] O2 Sat by Pulse 94 94 96 Oximetry 03/24/18 03/24/18 03/24/18 03:53 03:58 04:00 Temperature 98 F Pulse Rate 81 62 80 Respiratory 18 Rate Blood Pressure Blood Pressure 127/90 [Right] O2 Sat by Pulse 96 96 99 Oximetry 03/24/18 03/24/18 03/24/18 04:03 04:08 04:13 Temperature Pulse Rate 65 70 68 Respiratory Rate Blood Pressure Blood Pressure [Right] O2 Sat by Pulse 96 97 96 Oximetry 03/24/18 03/24/18 03/24/18 04:18 04:23 04:26 Temperature Pulse Rate 66 63 62 Respiratory Rate Blood Pressure Blood Pressure [Right] O2 Sat by Pulse 95 96 94 Oximetry 03/24/18 03/24/18 03/24/18 04:28 04:33 04:38 Temperature Pulse Rate 67 63 60 Respiratory Rate Blood Pressure Blood Pressure [Right] O2 Sat by Pulse 97 97 95 Oximetry 03/24/18 03/24/18 03/24/18 04:43 04:48 04:53 Temperature Pulse Rate 63 62 67 Respiratory Rate Blood Pressure Blood Pressure [Right] O2 Sat by Pulse 95 96 96 Oximetry 03/24/18 03/24/18 03/24/18 04:58 05:03 05:08 Temperature Pulse Rate 63 66 67 Respiratory Rate Blood Pressure Blood Pressure [Right] O2 Sat by Pulse 95 95 96 Oximetry 03/24/18 03/24/18 03/24/18 05:11 05:13 05:18 Temperature Pulse Rate 60 70 71 Respiratory Rate Blood Pressure Blood Pressure [Right] O2 Sat by Pulse 94 97 97 Oximetry 03/24/18 03/24/18 03/24/18 05:39 05:44 05:49 Temperature Pulse Rate 80 65 60 Respiratory Rate Blood Pressure Blood Pressure [Right] O2 Sat by Pulse 97 96 95 Oximetry 03/24/18 03/24/18 03/24/18 05:54 05:57 05:59 Temperature Pulse Rate 55 L 59 L 52 L Respiratory Rate Blood Pressure Blood Pressure [Right] O2 Sat by Pulse 98 93 95 Oximetry 03/24/18 03/24/18 03/24/18 06:02 06:04 06:08 Temperature Pulse Rate 68 73 56 L Respiratory Rate Blood Pressure Blood Pressure [Right] O2 Sat by Pulse 94 95 93 Oximetry 03/24/18 03/24/18 03/24/18 06:09 06:14 06:19 Temperature Pulse Rate 64 63 60 Respiratory Rate Blood Pressure Blood Pressure [Right] O2 Sat by Pulse 97 95 95 Oximetry 03/24/18 03/24/18 03/24/18 06:21 06:24 06:29 Temperature Pulse Rate 65 65 58 L Respiratory Rate Blood Pressure Blood Pressure [Right] O2 Sat by Pulse 94 95 97 Oximetry 03/24/18 03/24/18 03/24/18 06:32 06:34 06:38 Temperature Pulse Rate 68 59 L 59 L Respiratory Rate Blood Pressure Blood Pressure [Right] O2 Sat by Pulse 94 96 94 Oximetry 03/24/18 03/24/18 03/24/18 06:39 06:43 06:44 Temperature Pulse Rate 69 56 L 59 L Respiratory Rate Blood Pressure Blood Pressure [Right] O2 Sat by Pulse 94 94 95 Oximetry 03/24/18 03/24/18 03/24/18 06:49 07:01 07:06 Temperature Pulse Rate 62 64 60 Respiratory Rate Blood Pressure Blood Pressure [Right] O2 Sat by Pulse 97 85 96 Oximetry 03/24/18 03/24/18 03/24/18 07:09 07:11 07:16 Temperature Pulse Rate 60 62 57 L Respiratory Rate Blood Pressure Blood Pressure [Right] O2 Sat by Pulse 94 95 95 Oximetry 03/24/18 03/24/18 03/24/18 07:21 07:26 07:30 Temperature Pulse Rate 57 L 60 59 L Respiratory Rate Blood Pressure Blood Pressure [Right] O2 Sat by Pulse 96 95 94 Oximetry 03/24/18 03/24/18 03/24/18 07:31 07:36 07:40 Temperature Pulse Rate 62 61 58 L Respiratory Rate Blood Pressure Blood Pressure [Right] O2 Sat by Pulse 95 95 94 Oximetry 03/24/18 03/24/18 03/24/18 07:41 07:45 07:46 Temperature Pulse Rate 60 62 59 L Respiratory Rate Blood Pressure Blood Pressure [Right] O2 Sat by Pulse 94 94 95 Oximetry 03/24/18 03/24/18 03/24/18 07:50 07:51 07:55 Temperature Pulse Rate 69 65 64 Respiratory Rate Blood Pressure Blood Pressure [Right] O2 Sat by Pulse 93 95 92 Oximetry 03/24/18 03/24/18 03/24/18 07:56 08:02 08:03 Temperature Pulse Rate 59 L 83 71 Respiratory Rate Blood Pressure 135/83 Blood Pressure [Right] O2 Sat by Pulse 97 97 Oximetry 03/24/18 03/24/18 03/24/18 08:04 08:07 08:09 Temperature 97.7 F Pulse Rate 75 68 65 Respiratory 15 Rate Blood Pressure 137/86 Blood Pressure 137/86 [Right] O2 Sat by Pulse 98 98 92 Oximetry 03/24/18 03/24/18 03/24/18 08:12 08:17 08:22 Temperature Pulse Rate 70 61 66 Respiratory Rate Blood Pressure Blood Pressure [Right] O2 Sat by Pulse 97 96 97 Oximetry 03/24/18 03/24/18 03/24/18 08:25 11:25 11:42 Temperature Pulse Rate 79 74 82 Respiratory Rate Blood Pressure 136/84 Blood Pressure [Right] O2 Sat by Pulse 80 L 97 Oximetry 03/24/18 03/24/18 03/24/18 11:43 11:46 11:51 Temperature 98.4 F Pulse Rate 79 79 Respiratory 16 Rate Blood Pressure Blood Pressure [Right] O2 Sat by Pulse 96 96 Oximetry 03/24/18 03/24/18 03/24/18 11:56 12:01 12:04 Temperature Pulse Rate 86 77 78 Respiratory Rate Blood Pressure 144/94 Blood Pressure [Right] O2 Sat by Pulse 95 95 94 Oximetry 03/24/18 03/24/18 03/24/18 12:07 12:11 12:17 Temperature Pulse Rate 74 73 67 Respiratory Rate Blood Pressure Blood Pressure [Right] O2 Sat by Pulse 96 96 95 Oximetry 03/24/18 03/24/18 03/24/18 12:18 12:20 12:22 Temperature Pulse Rate 88 72 70 Respiratory Rate Blood Pressure 148/78 Blood Pressure [Right] O2 Sat by Pulse 94 97 Oximetry 03/24/18 03/24/18 03/24/18 12:26 12:27 12:29 Temperature Pulse Rate 88 74 81 Respiratory Rate Blood Pressure 149/83 Blood Pressure [Right] O2 Sat by Pulse 96 93 Oximetry 03/24/18 03/24/18 03/24/18 12:32 12:35 12:37 Temperature Pulse Rate 75 83 81 Respiratory Rate Blood Pressure Blood Pressure [Right] O2 Sat by Pulse 95 94 96 Oximetry 03/24/18 12:42 Temperature Pulse Rate 85 Respiratory Rate Blood Pressure Blood Pressure [Right] O2 Sat by Pulse 96 Oximetry - Exam Breasts: deferred Lungs: Normal air movement Abdomen: Present: soft Vulva: both: normal (mcdaniels placed) Uterus: Present: fundal height below umbilicus. Absent: tenderness FHR: category 2 Uterine Contraction Monitor Mode: External Uterine Contraction Frequency (min): 2-3 Uterine Contraction Pattern: Regular Deep Tendon Reflex Grade: Normal +2 - Labs Labs: Abnormal Labs 03/22/18 03/22/18 03/23/18 00:34 00:34 19:42 Monocytes % (Manual) 9.0 H Eosinophils % (Manual) 11.0 H Basophils % (Manual) 2.0 H Eosinophils # (Manual) 0.9 H Basophils # (Manual) 0.2 H Lactate Dehydrogenase 247 H Ur Total Protein 24 Hr 662.20 H Urine Total Protein 22 H Laboratory Results - last 24 hr 03/23/18 03/24/18 03/24/18 19:42 10:39 10:39 WBC 7.4 RBC 3.89 Hgb 12.4 Hct 36.8 MCV 95 MCH 32 MCHC 34 RDW 14.8 Plt Count 232 Urine Total Volume 3010 Ur Total Protein 24 Hr 662.20 H Urine Total Protein 22 H Blood Type A POSITIVE Antibody Screen Negative
[2018-03-24] MEDS ORDERED: AMPICILLIN/NS 1 GM/50 ML 1 GM/50 ML BAG IV SCH (14:00)
--- NOTE | 2018-03-24 14:46 | Progress Note ---
Assessment and Plan Allow epidural, hold pitocin at 12mu/min for now - Patient Problems (1) 37 weeks gestation of Current Visit: Yes Status: Acute (2) Pre-eclampsia Current Visit: Yes Status: Acute Qualifiers: Trimester: third trimester Qualified Code(s): O14.93 - Unspecified pre- eclampsia, third trimester (3) GBS (group B Streptococcus carrier), +RV culture, currently Current Visit: Yes Status: Acute (4) Upper respiratory infection with cough and congestion Current Visit: Yes Status: Resolved Subjective - Subjective Date of service: 03/24/18 Principal diagnosis: IUP@37 wga, Preeclampsia Patient reports: movement normal, contractions, no new complaints Objective - Vital Signs Vital Signs: Vital Signs - 12hr 03/24/18 03/24/18 03/24/18 02:46 02:47 02:51 Temperature Pulse Rate 62 64 88 Respiratory Rate Blood Pressure Blood Pressure [Right] O2 Sat by Pulse 94 94 96 Oximetry 03/24/18 03/24/18 03/24/18 02:56 03:01 03:13 Temperature Pulse Rate 95 H 68 101 H Respiratory Rate Blood Pressure Blood Pressure [Right] O2 Sat by Pulse 95 94 95 Oximetry 03/24/18 03/24/18 03/24/18 03:18 03:19 03:23 Temperature Pulse Rate 92 H 76 Respiratory Rate Blood Pressure 123/69 Blood Pressure [Right] O2 Sat by Pulse 94 92 94 Oximetry 03/24/18 03/24/18 03/24/18 03:28 03:33 03:38 Temperature Pulse Rate 76 67 70 Respiratory Rate Blood Pressure Blood Pressure [Right] O2 Sat by Pulse 95 96 95 Oximetry 03/24/18 03/24/18 03/24/18 03:42 03:43 03:48 Temperature Pulse Rate 61 60 80 Respiratory Rate Blood Pressure Blood Pressure [Right] O2 Sat by Pulse 94 94 96 Oximetry 03/24/18 03/24/18 03/24/18 03:53 03:58 04:00 Temperature 98 F Pulse Rate 81 62 80 Respiratory 18 Rate Blood Pressure Blood Pressure 127/90 [Right] O2 Sat by Pulse 96 96 99 Oximetry 03/24/18 03/24/18 03/24/18 04:03 04:08 04:13 Temperature Pulse Rate 65 70 68 Respiratory Rate Blood Pressure Blood Pressure [Right] O2 Sat by Pulse 96 97 96 Oximetry 03/24/18 03/24/18 03/24/18 04:18 04:23 04:26 Temperature Pulse Rate 66 63 62 Respiratory Rate Blood Pressure Blood Pressure [Right] O2 Sat by Pulse 95 96 94 Oximetry 03/24/18 03/24/18 03/24/18 04:28 04:33 04:38 Temperature Pulse Rate 67 63 60 Respiratory Rate Blood Pressure Blood Pressure [Right] O2 Sat by Pulse 97 97 95 Oximetry 03/24/18 03/24/18 03/24/18 04:43 04:48 04:53 Temperature Pulse Rate 63 62 67 Respiratory Rate Blood Pressure Blood Pressure [Right] O2 Sat by Pulse 95 96 96 Oximetry 03/24/18 03/24/18 03/24/18 04:58 05:03 05:08 Temperature Pulse Rate 63 66 67 Respiratory Rate Blood Pressure Blood Pressure [Right] O2 Sat by Pulse 95 95 96 Oximetry 03/24/18 03/24/18 03/24/18 05:11 05:13 05:18 Temperature Pulse Rate 60 70 71 Respiratory Rate Blood Pressure Blood Pressure [Right] O2 Sat by Pulse 94 97 97 Oximetry 03/24/18 03/24/18 03/24/18 05:39 05:44 05:49 Temperature Pulse Rate 80 65 60 Respiratory Rate Blood Pressure Blood Pressure [Right] O2 Sat by Pulse 97 96 95 Oximetry 03/24/18 03/24/18 03/24/18 05:54 05:57 05:59 Temperature Pulse Rate 55 L 59 L 52 L Respiratory Rate Blood Pressure Blood Pressure [Right] O2 Sat by Pulse 98 93 95 Oximetry 03/24/18 03/24/18 03/24/18 06:02 06:04 06:08 Temperature Pulse Rate 68 73 56 L Respiratory Rate Blood Pressure Blood Pressure [Right] O2 Sat by Pulse 94 95 93 Oximetry 03/24/18 03/24/18 03/24/18 06:09 06:14 06:19 Temperature Pulse Rate 64 63 60 Respiratory Rate Blood Pressure Blood Pressure [Right] O2 Sat by Pulse 97 95 95 Oximetry 03/24/18 03/24/18 03/24/18 06:21 06:24 06:29 Temperature Pulse Rate 65 65 58 L Respiratory Rate Blood Pressure Blood Pressure [Right] O2 Sat by Pulse 94 95 97 Oximetry 03/24/18 03/24/18 03/24/18 06:32 06:34 06:38 Temperature Pulse Rate 68 59 L 59 L Respiratory Rate Blood Pressure Blood Pressure [Right] O2 Sat by Pulse 94 96 94 Oximetry 03/24/18 03/24/18 03/24/18 06:39 06:43 06:44 Temperature Pulse Rate 69 56 L 59 L Respiratory Rate Blood Pressure Blood Pressure [Right] O2 Sat by Pulse 94 94 95 Oximetry 03/24/18 03/24/18 03/24/18 06:49 07:01 07:06 Temperature Pulse Rate 62 64 60 Respiratory Rate Blood Pressure Blood Pressure [Right] O2 Sat by Pulse 97 85 96 Oximetry 03/24/18 03/24/18 03/24/18 07:09 07:11 07:16 Temperature Pulse Rate 60 62 57 L Respiratory Rate Blood Pressure Blood Pressure [Right] O2 Sat by Pulse 94 95 95 Oximetry 03/24/18 03/24/18 03/24/18 07:21 07:26 07:30 Temperature Pulse Rate 57 L 60 59 L Respiratory Rate Blood Pressure Blood Pressure [Right] O2 Sat by Pulse 96 95 94 Oximetry 03/24/18 03/24/18 03/24/18 07:31 07:36 07:40 Temperature Pulse Rate 62 61 58 L Respiratory Rate Blood Pressure Blood Pressure [Right] O2 Sat by Pulse 95 95 94 Oximetry 03/24/18 03/24/18 03/24/18 07:41 07:45 07:46 Temperature Pulse Rate 60 62 59 L Respiratory Rate Blood Pressure Blood Pressure [Right] O2 Sat by Pulse 94 94 95 Oximetry 03/24/18 03/24/18 03/24/18 07:50 07:51 07:55 Temperature Pulse Rate 69 65 64 Respiratory Rate Blood Pressure Blood Pressure [Right] O2 Sat by Pulse 93 95 92 Oximetry 03/24/18 03/24/18 03/24/18 07:56 08:02 08:03 Temperature Pulse Rate 59 L 83 71 Respiratory Rate Blood Pressure 135/83 Blood Pressure [Right] O2 Sat by Pulse 97 97 Oximetry 03/24/18 03/24/18 03/24/18 08:04 08:07 08:09 Temperature 97.7 F Pulse Rate 75 68 65 Respiratory 15 Rate Blood Pressure 137/86 Blood Pressure 137/86 [Right] O2 Sat by Pulse 98 98 92 Oximetry 03/24/18 03/24/18 03/24/18 08:12 08:17 08:22 Temperature Pulse Rate 70 61 66 Respiratory Rate Blood Pressure Blood Pressure [Right] O2 Sat by Pulse 97 96 97 Oximetry 03/24/18 03/24/18 03/24/18 08:25 11:25 11:42 Temperature Pulse Rate 79 74 82 Respiratory Rate Blood Pressure 136/84 Blood Pressure [Right] O2 Sat by Pulse 80 L 97 Oximetry 03/24/18 03/24/18 03/24/18 11:43 11:46 11:51 Temperature 98.4 F Pulse Rate 79 79 Respiratory 16 Rate Blood Pressure Blood Pressure [Right] O2 Sat by Pulse 96 96 Oximetry 03/24/18 03/24/18 03/24/18 11:56 12:01 12:04 Temperature Pulse Rate 86 77 78 Respiratory Rate Blood Pressure 144/94 Blood Pressure [Right] O2 Sat by Pulse 95 95 94 Oximetry 03/24/18 03/24/18 03/24/18 12:07 12:11 12:17 Temperature Pulse Rate 74 73 67 Respiratory Rate Blood Pressure Blood Pressure [Right] O2 Sat by Pulse 96 96 95 Oximetry 03/24/18 03/24/18 03/24/18 12:18 12:20 12:22 Temperature Pulse Rate 88 72 70 Respiratory Rate Blood Pressure 148/78 Blood Pressure [Right] O2 Sat by Pulse 94 97 Oximetry 03/24/18 03/24/18 03/24/18 12:26 12:27 12:29 Temperature Pulse Rate 88 74 81 Respiratory Rate Blood Pressure 149/83 Blood Pressure [Right] O2 Sat by Pulse 96 93 Oximetry 03/24/18 03/24/18 03/24/18 12:32 12:35 12:37 Temperature Pulse Rate 75 83 81 Respiratory Rate Blood Pressure Blood Pressure [Right] O2 Sat by Pulse 95 94 96 Oximetry 03/24/18 03/24/18 03/24/18 12:42 12:44 12:47 Temperature Pulse Rate 85 88 78 Respiratory Rate Blood Pressure Blood Pressure [Right] O2 Sat by Pulse 96 94 95 Oximetry 03/24/18 03/24/18 03/24/18 12:51 12:52 12:55 Temperature Pulse Rate 79 79 71 Respiratory Rate Blood Pressure 121/76 Blood Pressure [Right] O2 Sat by Pulse 94 95 Oximetry 03/24/18 03/24/18 03/24/18 12:56 12:57 13:01 Temperature Pulse Rate 82 74 83 Respiratory Rate Blood Pressure Blood Pressure [Right] O2 Sat by Pulse 94 94 94 Oximetry 03/24/18 03/24/18 03/24/18 13:02 13:07 13:12 Temperature Pulse Rate 78 74 78 Respiratory Rate Blood Pressure Blood Pressure [Right] O2 Sat by Pulse 95 94 96 Oximetry 03/24/18 03/24/18 03/24/18 13:17 13:18 13:22 Temperature Pulse Rate 79 78 78 Respiratory Rate Blood Pressure Blood Pressure [Right] O2 Sat by Pulse 96 94 94 Oximetry 03/24/18 03/24/18 03/24/18 13:25 13:27 13:32 Temperature Pulse Rate 83 77 71 Respiratory Rate Blood Pressure 119/81 Blood Pressure [Right] O2 Sat by Pulse 94 99 99 Oximetry 03/24/18 03/24/18 03/24/18 13:37 13:42 13:47 Temperature Pulse Rate 78 75 67 Respiratory Rate Blood Pressure Blood Pressure [Right] O2 Sat by Pulse 98 99 98 Oximetry 03/24/18 03/24/18 03/24/18 13:52 13:55 13:57 Temperature Pulse Rate 81 69 86 Respiratory Rate Blood Pressure 129/76 Blood Pressure [Right] O2 Sat by Pulse 99 99 Oximetry 03/24/18 03/24/18 03/24/18 14:02 14:07 14:12 Temperature Pulse Rate 76 74 78 Respiratory Rate Blood Pressure Blood Pressure [Right] O2 Sat by Pulse 99 98 98 Oximetry 03/24/18 03/24/18 03/24/18 14:17 14:22 14:27 Temperature Pulse Rate 68 82 89 Respiratory Rate Blood Pressure 158/99 Blood Pressure [Right] O2 Sat by Pulse 99 100 100 Oximetry 03/24/18 03/24/18 03/24/18 14:28 14:31 14:37 Temperature Pulse Rate 86 81 85 Respiratory Rate Blood Pressure Blood Pressure [Right] O2 Sat by Pulse 90 100 100 Oximetry 03/24/18 03/24/18 14:40 14:42 Temperature Pulse Rate 63 75 Respiratory Rate Blood Pressure Blood Pressure [Right] O2 Sat by Pulse 84 98 Oximetry - Exam Breasts: deferred Cardiovascular: Regular rate Lungs: Normal air movement Abdomen: Present: normal appearance, soft. Absent: tenderness Vulva: both: normal Uterus: Present: fundal height above umbilicus. Absent: tenderness FHR: category 2 Uterine Contraction Monitor Mode: Internal (AROM explained, indications and procedure discussed, questions answered, she voiced understanding, AROM, clear fluid, IUPC and ISE placed w/o difficulty.) Cervical Dilatation: 4 Cervical Effacement Percentage: 70 station: -2 Uterine Contraction Frequency (min): 2 Uterine Contraction Pattern: Regular - Labs Labs: Abnormal Labs 03/22/18 03/22/18 03/23/18 00:34 00:34 19:42 Monocytes % (Manual) 9.0 H Eosinophils % (Manual) 11.0 H Basophils % (Manual) 2.0 H Eosinophils # (Manual) 0.9 H Basophils # (Manual) 0.2 H Lactate Dehydrogenase 247 H Ur Total Protein 24 Hr 662.20 H Urine Total Protein 22 H Laboratory Results - last 24 hr 03/23/18 03/24/18 03/24/18 19:42 10:39 10:39 WBC 7.4 RBC 3.89 Hgb 12.4 Hct 36.8 MCV 95 MCH 32 MCHC 34 RDW 14.8 Plt Count 232 Urine Total Volume 3010 Ur Total Protein 24 Hr 662.20 H Urine Total Protein 22 H Blood Type A POSITIVE Antibody Screen Negative
[2018-03-24] MEDS ORDERED: NARCAN 2 MG/2 ML IV PRN (15:21)
[2018-03-24] MEDS ORDERED: fentaNYL-BUPIV 2 MCG/ML-0.125% 200 MCG/100 ML BAG EPIDURAL SCH (16:00)
[2018-03-24] MEDS ORDERED: XYLOCAINE MPF 2% ONE (16:05)
--- NOTE | 2018-03-24 16:11 | Progress Note ---
Assessment and Plan - Patient Problems (1) 37 weeks gestation of Current Visit: Yes Status: Acute (2) Pre-eclampsia Current Visit: Yes Status: Acute Qualifiers: Trimester: third trimester Qualified Code(s): O14.93 - Unspecified pre- eclampsia, third trimester (3) GBS (group B Streptococcus carrier), +RV culture, currently Current Visit: Yes Status: Acute (4) Upper respiratory infection with cough and congestion Current Visit: Yes Status: Resolved Subjective - Subjective Principal diagnosis: IUP@37 wga, Preeclampsia Patient reports: movement normal, contractions, no new complaints Objective - Vital Signs Vital Signs: Vital Signs - 12hr 03/24/18 03/24/18 03/24/18 04:13 04:18 04:23 Temperature Pulse Rate 68 66 63 Respiratory Rate Blood Pressure Blood Pressure [Right] O2 Sat by Pulse 96 95 96 Oximetry 03/24/18 03/24/18 03/24/18 04:26 04:28 04:33 Temperature Pulse Rate 62 67 63 Respiratory Rate Blood Pressure Blood Pressure [Right] O2 Sat by Pulse 94 97 97 Oximetry 03/24/18 03/24/18 03/24/18 04:38 04:43 04:48 Temperature Pulse Rate 60 63 62 Respiratory Rate Blood Pressure Blood Pressure [Right] O2 Sat by Pulse 95 95 96 Oximetry 03/24/18 03/24/18 03/24/18 04:53 04:58 05:03 Temperature Pulse Rate 67 63 66 Respiratory Rate Blood Pressure Blood Pressure [Right] O2 Sat by Pulse 96 95 95 Oximetry 03/24/18 03/24/18 03/24/18 05:08 05:11 05:13 Temperature Pulse Rate 67 60 70 Respiratory Rate Blood Pressure Blood Pressure [Right] O2 Sat by Pulse 96 94 97 Oximetry 03/24/18 03/24/18 03/24/18 05:18 05:39 05:44 Temperature Pulse Rate 71 80 65 Respiratory Rate Blood Pressure Blood Pressure [Right] O2 Sat by Pulse 97 97 96 Oximetry 03/24/18 03/24/18 03/24/18 05:49 05:54 05:57 Temperature Pulse Rate 60 55 L 59 L Respiratory Rate Blood Pressure Blood Pressure [Right] O2 Sat by Pulse 95 98 93 Oximetry 03/24/18 03/24/18 03/24/18 05:59 06:02 06:04 Temperature Pulse Rate 52 L 68 73 Respiratory Rate Blood Pressure Blood Pressure [Right] O2 Sat by Pulse 95 94 95 Oximetry 03/24/18 03/24/18 03/24/18 06:08 06:09 06:14 Temperature Pulse Rate 56 L 64 63 Respiratory Rate Blood Pressure Blood Pressure [Right] O2 Sat by Pulse 93 97 95 Oximetry 03/24/18 03/24/18 03/24/18 06:19 06:21 06:24 Temperature Pulse Rate 60 65 65 Respiratory Rate Blood Pressure Blood Pressure [Right] O2 Sat by Pulse 95 94 95 Oximetry 03/24/18 03/24/18 03/24/18 06:29 06:32 06:34 Temperature Pulse Rate 58 L 68 59 L Respiratory Rate Blood Pressure Blood Pressure [Right] O2 Sat by Pulse 97 94 96 Oximetry 03/24/18 03/24/18 03/24/18 06:38 06:39 06:43 Temperature Pulse Rate 59 L 69 56 L Respiratory Rate Blood Pressure Blood Pressure [Right] O2 Sat by Pulse 94 94 94 Oximetry 03/24/18 03/24/18 03/24/18 06:44 06:49 07:01 Temperature Pulse Rate 59 L 62 64 Respiratory Rate Blood Pressure Blood Pressure [Right] O2 Sat by Pulse 95 97 85 Oximetry 03/24/18 03/24/18 03/24/18 07:06 07:09 07:11 Temperature Pulse Rate 60 60 62 Respiratory Rate Blood Pressure Blood Pressure [Right] O2 Sat by Pulse 96 94 95 Oximetry 03/24/18 03/24/18 03/24/18 07:16 07:21 07:26 Temperature Pulse Rate 57 L 57 L 60 Respiratory Rate Blood Pressure Blood Pressure [Right] O2 Sat by Pulse 95 96 95 Oximetry 03/24/18 03/24/18 03/24/18 07:30 07:31 07:36 Temperature Pulse Rate 59 L 62 61 Respiratory Rate Blood Pressure Blood Pressure [Right] O2 Sat by Pulse 94 95 95 Oximetry 03/24/18 03/24/18 03/24/18 07:40 07:41 07:45 Temperature Pulse Rate 58 L 60 62 Respiratory Rate Blood Pressure Blood Pressure [Right] O2 Sat by Pulse 94 94 94 Oximetry 03/24/18 03/24/18 03/24/18 07:46 07:50 07:51 Temperature Pulse Rate 59 L 69 65 Respiratory Rate Blood Pressure Blood Pressure [Right] O2 Sat by Pulse 95 93 95 Oximetry 03/24/18 03/24/18 03/24/18 07:55 07:56 08:02 Temperature Pulse Rate 64 59 L 83 Respiratory Rate Blood Pressure Blood Pressure [Right] O2 Sat by Pulse 92 97 97 Oximetry 03/24/18 03/24/18 03/24/18 08:03 08:04 08:07 Temperature 97.7 F Pulse Rate 71 75 68 Respiratory 15 Rate Blood Pressure 135/83 137/86 Blood Pressure 137/86 [Right] O2 Sat by Pulse 98 98 Oximetry 03/24/18 03/24/18 03/24/18 08:09 08:12 08:17 Temperature Pulse Rate 65 70 61 Respiratory Rate Blood Pressure Blood Pressure [Right] O2 Sat by Pulse 92 97 96 Oximetry 03/24/18 03/24/18 03/24/18 08:22 08:25 11:25 Temperature Pulse Rate 66 79 74 Respiratory Rate Blood Pressure 136/84 Blood Pressure [Right] O2 Sat by Pulse 97 80 L Oximetry 03/24/18 03/24/18 03/24/18 11:42 11:43 11:46 Temperature 98.4 F Pulse Rate 82 79 Respiratory 16 Rate Blood Pressure Blood Pressure [Right] O2 Sat by Pulse 97 96 Oximetry 03/24/18 03/24/18 03/24/18 11:51 11:56 12:01 Temperature Pulse Rate 79 86 77 Respiratory Rate Blood Pressure 144/94 Blood Pressure [Right] O2 Sat by Pulse 96 95 95 Oximetry 03/24/18 03/24/18 03/24/18 12:04 12:07 12:11 Temperature Pulse Rate 78 74 73 Respiratory Rate Blood Pressure Blood Pressure [Right] O2 Sat by Pulse 94 96 96 Oximetry 03/24/18 03/24/18 03/24/18 12:17 12:18 12:20 Temperature Pulse Rate 67 88 72 Respiratory Rate Blood Pressure 148/78 Blood Pressure [Right] O2 Sat by Pulse 95 94 Oximetry 03/24/18 03/24/18 03/24/18 12:22 12:26 12:27 Temperature Pulse Rate 70 88 74 Respiratory Rate Blood Pressure 149/83 Blood Pressure [Right] O2 Sat by Pulse 97 96 Oximetry 03/24/18 03/24/18 03/24/18 12:29 12:32 12:35 Temperature Pulse Rate 81 75 83 Respiratory Rate Blood Pressure Blood Pressure [Right] O2 Sat by Pulse 93 95 94 Oximetry 03/24/18 03/24/18 03/24/18 12:37 12:42 12:44 Temperature Pulse Rate 81 85 88 Respiratory Rate Blood Pressure Blood Pressure [Right] O2 Sat by Pulse 96 96 94 Oximetry 03/24/18 03/24/18 03/24/18 12:47 12:51 12:52 Temperature Pulse Rate 78 79 79 Respiratory Rate Blood Pressure Blood Pressure [Right] O2 Sat by Pulse 95 94 95 Oximetry 03/24/18 03/24/18 03/24/18 12:55 12:56 12:57 Temperature Pulse Rate 71 82 74 Respiratory Rate Blood Pressure 121/76 Blood Pressure [Right] O2 Sat by Pulse 94 94 Oximetry 03/24/18 03/24/18 03/24/18 13:01 13:02 13:07 Temperature Pulse Rate 83 78 74 Respiratory Rate Blood Pressure Blood Pressure [Right] O2 Sat by Pulse 94 95 94 Oximetry 03/24/18 03/24/18 03/24/18 13:12 13:17 13:18 Temperature Pulse Rate 78 79 78 Respiratory Rate Blood Pressure Blood Pressure [Right] O2 Sat by Pulse 96 96 94 Oximetry 03/24/18 03/24/18 03/24/18 13:22 13:25 13:27 Temperature Pulse Rate 78 83 77 Respiratory Rate Blood Pressure 119/81 Blood Pressure [Right] O2 Sat by Pulse 94 94 99 Oximetry 03/24/18 03/24/18 03/24/18 13:32 13:37 13:42 Temperature Pulse Rate 71 78 75 Respiratory Rate Blood Pressure Blood Pressure [Right] O2 Sat by Pulse 99 98 99 Oximetry 03/24/18 03/24/18 03/24/18 13:47 13:52 13:55 Temperature Pulse Rate 67 81 69 Respiratory Rate Blood Pressure 129/76 Blood Pressure [Right] O2 Sat by Pulse 98 99 Oximetry 03/24/18 03/24/18 03/24/18 13:57 14:02 14:07 Temperature Pulse Rate 86 76 74 Respiratory Rate Blood Pressure Blood Pressure [Right] O2 Sat by Pulse 99 99 98 Oximetry 03/24/18 03/24/18 03/24/18 14:12 14:17 14:22 Temperature Pulse Rate 78 68 82 Respiratory Rate Blood Pressure Blood Pressure [Right] O2 Sat by Pulse 98 99 100 Oximetry 03/24/18 03/24/18 03/24/18 14:27 14:28 14:31 Temperature Pulse Rate 89 86 81 Respiratory Rate Blood Pressure 158/99 Blood Pressure [Right] O2 Sat by Pulse 100 90 100 Oximetry 03/24/18 03/24/18 03/24/18 14:37 14:40 14:42 Temperature Pulse Rate 85 63 75 Respiratory Rate Blood Pressure Blood Pressure [Right] O2 Sat by Pulse 100 84 98 Oximetry 03/24/18 03/24/18 03/24/18 14:46 14:47 14:52 Temperature Pulse Rate 74 72 Respiratory 16 Rate Blood Pressure Blood Pressure [Right] O2 Sat by Pulse 87 99 82 L Oximetry 03/24/18 03/24/18 03/24/18 14:56 15:29 15:30 Temperature Pulse Rate 68 83 84 Respiratory Rate Blood Pressure 136/76 173/93 Blood Pressure [Right] O2 Sat by Pulse 0 L 98 Oximetry 03/24/18 03/24/18 03/24/18 15:35 15:37 15:40 Temperature Pulse Rate 83 84 77 Respiratory Rate Blood Pressure Blood Pressure [Right] O2 Sat by Pulse 94 94 94 Oximetry 03/24/18 03/24/18 03/24/18 15:43 15:44 15:45 Temperature Pulse Rate 67 82 82 Respiratory Rate Blood Pressure 133/71 137/75 Blood Pressure [Right] O2 Sat by Pulse 94 95 Oximetry 03/24/18 03/24/18 03/24/18 15:47 15:49 15:50 Temperature Pulse Rate 68 97 H 80 Respiratory Rate Blood Pressure 134/75 159/90 Blood Pressure [Right] O2 Sat by Pulse 88 Oximetry 03/24/18 03/24/18 03/24/18 15:51 15:53 15:55 Temperature Pulse Rate 86 86 82 Respiratory Rate Blood Pressure 173/90 140/87 Blood Pressure [Right] O2 Sat by Pulse 97 Oximetry 03/24/18 03/24/18 03/24/18 15:56 15:57 15:59 Temperature Pulse Rate 84 82 83 Respiratory Rate Blood Pressure 149/86 159/90 Blood Pressure [Right] O2 Sat by Pulse 94 Oximetry 03/24/18 03/24/18 03/24/18 16:01 16:02 16:03 Temperature Pulse Rate 78 88 80 Respiratory Rate Blood Pressure 151/85 143/71 Blood Pressure [Right] O2 Sat by Pulse 100 Oximetry 03/24/18 03/24/18 03/24/18 16:05 16:07 16:08 Temperature Pulse Rate 75 87 79 Respiratory Rate Blood Pressure 146/74 147/84 Blood Pressure [Right] O2 Sat by Pulse 99 Oximetry 03/24/18 16:09 Temperature Pulse Rate 72 Respiratory Rate Blood Pressure 141/78 Blood Pressure [Right] O2 Sat by Pulse Oximetry - Labs Labs: Abnormal Labs 03/22/18 03/22/18 03/23/18 00:34 00:34 19:42 Monocytes % (Manual) 9.0 H Eosinophils % (Manual) 11.0 H Basophils % (Manual) 2.0 H Eosinophils # (Manual) 0.9 H Basophils # (Manual) 0.2 H Lactate Dehydrogenase 247 H Ur Total Protein 24 Hr 662.20 H Urine Total Protein 22 H Laboratory Results - last 24 hr 03/23/18 03/24/18 03/24/18 19:42 10:39 10:39 WBC 7.4 RBC 3.89 Hgb 12.4 Hct 36.8 MCV 95 MCH 32 MCHC 34 RDW 14.8 Plt Count 232 Urine Total Volume 3010 Ur Total Protein 24 Hr 662.20 H Urine Total Protein 22 H Blood Type A POSITIVE Antibody Screen Negative
--- NOTE | 2018-03-24 16:19 | Progress Note ---
Assessment and Plan S/P epidural, BP's stable, no hypotension, her IV infiltrated and a new one was started, variables noted, good variability, Variables improved with pitocin discontinued, O2 and position change. - Patient Problems (1) 37 weeks gestation of Current Visit: Yes Status: Acute (2) Pre-eclampsia Current Visit: Yes Status: Acute Qualifiers: Trimester: third trimester Qualified Code(s): O14.93 - Unspecified pre- eclampsia, third trimester (3) GBS (group B Streptococcus carrier), +RV culture, currently Current Visit: Yes Status: Acute (4) Upper respiratory infection with cough and congestion Current Visit: Yes Status: Resolved Subjective - Subjective Date of service: 03/24/18 Principal diagnosis: IUP@37 wga, Preeclampsia Patient reports: movement normal, contractions, no new complaints Objective - Vital Signs Vital Signs: Vital Signs - 12hr 03/24/18 03/24/18 03/24/18 04:18 04:23 04:26 Temperature Pulse Rate 66 63 62 Respiratory Rate Blood Pressure Blood Pressure [Right] O2 Sat by Pulse 95 96 94 Oximetry 03/24/18 03/24/18 03/24/18 04:28 04:33 04:38 Temperature Pulse Rate 67 63 60 Respiratory Rate Blood Pressure Blood Pressure [Right] O2 Sat by Pulse 97 97 95 Oximetry 03/24/18 03/24/18 03/24/18 04:43 04:48 04:53 Temperature Pulse Rate 63 62 67 Respiratory Rate Blood Pressure Blood Pressure [Right] O2 Sat by Pulse 95 96 96 Oximetry 03/24/18 03/24/18 03/24/18 04:58 05:03 05:08 Temperature Pulse Rate 63 66 67 Respiratory Rate Blood Pressure Blood Pressure [Right] O2 Sat by Pulse 95 95 96 Oximetry 03/24/18 03/24/18 03/24/18 05:11 05:13 05:18 Temperature Pulse Rate 60 70 71 Respiratory Rate Blood Pressure Blood Pressure [Right] O2 Sat by Pulse 94 97 97 Oximetry 03/24/18 03/24/18 03/24/18 05:39 05:44 05:49 Temperature Pulse Rate 80 65 60 Respiratory Rate Blood Pressure Blood Pressure [Right] O2 Sat by Pulse 97 96 95 Oximetry 03/24/18 03/24/18 03/24/18 05:54 05:57 05:59 Temperature Pulse Rate 55 L 59 L 52 L Respiratory Rate Blood Pressure Blood Pressure [Right] O2 Sat by Pulse 98 93 95 Oximetry 03/24/18 03/24/18 03/24/18 06:02 06:04 06:08 Temperature Pulse Rate 68 73 56 L Respiratory Rate Blood Pressure Blood Pressure [Right] O2 Sat by Pulse 94 95 93 Oximetry 03/24/18 03/24/18 03/24/18 06:09 06:14 06:19 Temperature Pulse Rate 64 63 60 Respiratory Rate Blood Pressure Blood Pressure [Right] O2 Sat by Pulse 97 95 95 Oximetry 03/24/18 03/24/18 03/24/18 06:21 06:24 06:29 Temperature Pulse Rate 65 65 58 L Respiratory Rate Blood Pressure Blood Pressure [Right] O2 Sat by Pulse 94 95 97 Oximetry 03/24/18 03/24/18 03/24/18 06:32 06:34 06:38 Temperature Pulse Rate 68 59 L 59 L Respiratory Rate Blood Pressure Blood Pressure [Right] O2 Sat by Pulse 94 96 94 Oximetry 03/24/18 03/24/18 03/24/18 06:39 06:43 06:44 Temperature Pulse Rate 69 56 L 59 L Respiratory Rate Blood Pressure Blood Pressure [Right] O2 Sat by Pulse 94 94 95 Oximetry 03/24/18 03/24/18 03/24/18 06:49 07:01 07:06 Temperature Pulse Rate 62 64 60 Respiratory Rate Blood Pressure Blood Pressure [Right] O2 Sat by Pulse 97 85 96 Oximetry 03/24/18 03/24/18 03/24/18 07:09 07:11 07:16 Temperature Pulse Rate 60 62 57 L Respiratory Rate Blood Pressure Blood Pressure [Right] O2 Sat by Pulse 94 95 95 Oximetry 03/24/18 03/24/18 03/24/18 07:21 07:26 07:30 Temperature Pulse Rate 57 L 60 59 L Respiratory Rate Blood Pressure Blood Pressure [Right] O2 Sat by Pulse 96 95 94 Oximetry 03/24/18 03/24/18 03/24/18 07:31 07:36 07:40 Temperature Pulse Rate 62 61 58 L Respiratory Rate Blood Pressure Blood Pressure [Right] O2 Sat by Pulse 95 95 94 Oximetry 03/24/18 03/24/18 03/24/18 07:41 07:45 07:46 Temperature Pulse Rate 60 62 59 L Respiratory Rate Blood Pressure Blood Pressure [Right] O2 Sat by Pulse 94 94 95 Oximetry 03/24/18 03/24/18 03/24/18 07:50 07:51 07:55 Temperature Pulse Rate 69 65 64 Respiratory Rate Blood Pressure Blood Pressure [Right] O2 Sat by Pulse 93 95 92 Oximetry 03/24/18 03/24/18 03/24/18 07:56 08:02 08:03 Temperature Pulse Rate 59 L 83 71 Respiratory Rate Blood Pressure 135/83 Blood Pressure [Right] O2 Sat by Pulse 97 97 Oximetry 03/24/18 03/24/18 03/24/18 08:04 08:07 08:09 Temperature 97.7 F Pulse Rate 75 68 65 Respiratory 15 Rate Blood Pressure 137/86 Blood Pressure 137/86 [Right] O2 Sat by Pulse 98 98 92 Oximetry 03/24/18 03/24/18 03/24/18 08:12 08:17 08:22 Temperature Pulse Rate 70 61 66 Respiratory Rate Blood Pressure Blood Pressure [Right] O2 Sat by Pulse 97 96 97 Oximetry 03/24/18 03/24/18 03/24/18 08:25 11:25 11:42 Temperature Pulse Rate 79 74 82 Respiratory Rate Blood Pressure 136/84 Blood Pressure [Right] O2 Sat by Pulse 80 L 97 Oximetry 03/24/18 03/24/18 03/24/18 11:43 11:46 11:51 Temperature 98.4 F Pulse Rate 79 79 Respiratory 16 Rate Blood Pressure Blood Pressure [Right] O2 Sat by Pulse 96 96 Oximetry 03/24/18 03/24/18 03/24/18 11:56 12:01 12:04 Temperature Pulse Rate 86 77 78 Respiratory Rate Blood Pressure 144/94 Blood Pressure [Right] O2 Sat by Pulse 95 95 94 Oximetry 03/24/18 03/24/18 03/24/18 12:07 12:11 12:17 Temperature Pulse Rate 74 73 67 Respiratory Rate Blood Pressure Blood Pressure [Right] O2 Sat by Pulse 96 96 95 Oximetry 03/24/18 03/24/18 03/24/18 12:18 12:20 12:22 Temperature Pulse Rate 88 72 70 Respiratory Rate Blood Pressure 148/78 Blood Pressure [Right] O2 Sat by Pulse 94 97 Oximetry 03/24/18 03/24/18 03/24/18 12:26 12:27 12:29 Temperature Pulse Rate 88 74 81 Respiratory Rate Blood Pressure 149/83 Blood Pressure [Right] O2 Sat by Pulse 96 93 Oximetry 03/24/18 03/24/18 03/24/18 12:32 12:35 12:37 Temperature Pulse Rate 75 83 81 Respiratory Rate Blood Pressure Blood Pressure [Right] O2 Sat by Pulse 95 94 96 Oximetry 03/24/18 03/24/18 03/24/18 12:42 12:44 12:47 Temperature Pulse Rate 85 88 78 Respiratory Rate Blood Pressure Blood Pressure [Right] O2 Sat by Pulse 96 94 95 Oximetry 03/24/18 03/24/18 03/24/18 12:51 12:52 12:55 Temperature Pulse Rate 79 79 71 Respiratory Rate Blood Pressure 121/76 Blood Pressure [Right] O2 Sat by Pulse 94 95 Oximetry 03/24/18 03/24/18 03/24/18 12:56 12:57 13:01 Temperature Pulse Rate 82 74 83 Respiratory Rate Blood Pressure Blood Pressure [Right] O2 Sat by Pulse 94 94 94 Oximetry 03/24/18 03/24/18 03/24/18 13:02 13:07 13:12 Temperature Pulse Rate 78 74 78 Respiratory Rate Blood Pressure Blood Pressure [Right] O2 Sat by Pulse 95 94 96 Oximetry 03/24/18 03/24/18 03/24/18 13:17 13:18 13:22 Temperature Pulse Rate 79 78 78 Respiratory Rate Blood Pressure Blood Pressure [Right] O2 Sat by Pulse 96 94 94 Oximetry 03/24/18 03/24/18 03/24/18 13:25 13:27 13:32 Temperature Pulse Rate 83 77 71 Respiratory Rate Blood Pressure 119/81 Blood Pressure [Right] O2 Sat by Pulse 94 99 99 Oximetry 03/24/18 03/24/18 03/24/18 13:37 13:42 13:47 Temperature Pulse Rate 78 75 67 Respiratory Rate Blood Pressure Blood Pressure [Right] O2 Sat by Pulse 98 99 98 Oximetry 03/24/18 03/24/18 03/24/18 13:52 13:55 13:57 Temperature Pulse Rate 81 69 86 Respiratory Rate Blood Pressure 129/76 Blood Pressure [Right] O2 Sat by Pulse 99 99 Oximetry 03/24/18 03/24/18 03/24/18 14:02 14:07 14:12 Temperature Pulse Rate 76 74 78 Respiratory Rate Blood Pressure Blood Pressure [Right] O2 Sat by Pulse 99 98 98 Oximetry 03/24/18 03/24/18 03/24/18 14:17 14:22 14:27 Temperature Pulse Rate 68 82 89 Respiratory Rate Blood Pressure 158/99 Blood Pressure [Right] O2 Sat by Pulse 99 100 100 Oximetry 03/24/18 03/24/18 03/24/18 14:28 14:31 14:37 Temperature Pulse Rate 86 81 85 Respiratory Rate Blood Pressure Blood Pressure [Right] O2 Sat by Pulse 90 100 100 Oximetry 03/24/18 03/24/18 03/24/18 14:40 14:42 14:46 Temperature Pulse Rate 63 75 Respiratory 16 Rate Blood Pressure Blood Pressure [Right] O2 Sat by Pulse 84 98 87 Oximetry 03/24/18 03/24/18 03/24/18 14:47 14:52 14:56 Temperature Pulse Rate 74 72 68 Respiratory Rate Blood Pressure 136/76 Blood Pressure [Right] O2 Sat by Pulse 99 82 L Oximetry 03/24/18 03/24/18 03/24/18 15:29 15:30 15:35 Temperature Pulse Rate 83 84 83 Respiratory Rate Blood Pressure 173/93 Blood Pressure [Right] O2 Sat by Pulse 0 L 98 94 Oximetry 03/24/18 03/24/18 03/24/18 15:37 15:40 15:43 Temperature Pulse Rate 84 77 67 Respiratory Rate Blood Pressure 133/71 Blood Pressure [Right] O2 Sat by Pulse 94 94 Oximetry 03/24/18 03/24/18 03/24/18 15:44 15:45 15:47 Temperature Pulse Rate 82 82 68 Respiratory Rate Blood Pressure 137/75 134/75 Blood Pressure [Right] O2 Sat by Pulse 94 95 Oximetry 03/24/18 03/24/18 03/24/18 15:49 15:50 15:51 Temperature Pulse Rate 97 H 80 86 Respiratory Rate Blood Pressure 159/90 Blood Pressure [Right] O2 Sat by Pulse 88 97 Oximetry 03/24/18 03/24/18 03/24/18 15:53 15:55 15:56 Temperature Pulse Rate 86 82 84 Respiratory Rate Blood Pressure 173/90 140/87 Blood Pressure [Right] O2 Sat by Pulse 94 Oximetry 03/24/18 03/24/18 03/24/18 15:57 15:59 16:01 Temperature Pulse Rate 82 83 78 Respiratory Rate Blood Pressure 149/86 159/90 151/85 Blood Pressure [Right] O2 Sat by Pulse Oximetry 03/24/18 03/24/18 03/24/18 16:02 16:03 16:05 Temperature Pulse Rate 88 80 75 Respiratory Rate Blood Pressure 143/71 146/74 Blood Pressure [Right] O2 Sat by Pulse 100 Oximetry 03/24/18 03/24/18 03/24/18 16:07 16:08 16:09 Temperature Pulse Rate 87 79 72 Respiratory Rate Blood Pressure 147/84 141/78 Blood Pressure [Right] O2 Sat by Pulse 99 Oximetry 03/24/18 03/24/18 03/24/18 16:11 16:13 16:15 Temperature Pulse Rate 76 75 86 Respiratory Rate Blood Pressure 143/80 133/77 138/82 Blood Pressure [Right] O2 Sat by Pulse 100 Oximetry - Exam Breasts: deferred Abdomen: Present: soft. Absent: distention, tenderness, guarding Uterus: Absent: tenderness FHR: category 2 Cervical Dilatation: 7 Cervical Effacement Percentage: 100 station: -1 per RN Uterine Contraction Pattern: Regular - Labs Labs: Abnormal Labs 03/22/18 03/22/18 03/23/18 00:34 00:34 19:42 Monocytes % (Manual) 9.0 H Eosinophils % (Manual) 11.0 H Basophils % (Manual) 2.0 H Eosinophils # (Manual) 0.9 H Basophils # (Manual) 0.2 H Lactate Dehydrogenase 247 H Ur Total Protein 24 Hr 662.20 H Urine Total Protein 22 H Laboratory Results - last 24 hr 03/23/18 03/24/18 03/24/18 19:42 10:39 10:39 WBC 7.4 RBC 3.89 Hgb 12.4 Hct 36.8 MCV 95 MCH 32 MCHC 34 RDW 14.8 Plt Count 232 Urine Total Volume 3010 Ur Total Protein 24 Hr 662.20 H Urine Total Protein 22 H Blood Type A POSITIVE Antibody Screen Negative
--- NOTE | 2018-03-24 18:10 | Procedure Note ---
OB Delivery Note - Delivery Date of Delivery: 03/24/18 Surgeon: MICHAEL FREEDMAN Estimated blood loss: 200cc - Vaginal Delivery presentation: vertex Delivery position: OA Intrapartum events: preeclampsia, mult.variable deceleratio Delivery induction: oxytocin Delivery augmentation: rupture of membranes, pitocin Delivery monitor: external FHT, external uterine, internal FHT, internal uterine Route of delivery: Delivery laceration: 1st degree (vaginal, posterior wall, perineum intact) Delivery repair: vicryl (3-0, figure of 8 x1) Anesthesia: epidural - Infant A at 1 minute: 7 at 5 minutes: 8 Infant Gender: Female (4#7oz)
[2018-03-24 19:38] LABS: Amphetamine Screen,Urine PRESUMPTIVE NEGATIVE; Benzodiazepines Screen,Urine PRESUMPTIVE NEGATIVE; Cannabinoid Screen,Urine PRESUMPTIVE NEGATIVE; Cocaine Screen,Urine PRESUMPTIVE NEGATIVE; Methadone Screen,Urine PRESUMPTIVE NEGATIVE; Opiate Screen,Urine PRESUMPTIVE NEGATIVE
[2018-03-24] MEDS ORDERED: PHENERGAN PR PRN (20:11)
[2018-03-24] MEDS ORDERED: TUCKS PAD TP PRN (20:11)
[2018-03-24] MEDS ORDERED: PHENERGAN PO PRN (20:11)
[2018-03-24] MEDS ORDERED: HEMABATE IM PRN (20:11)
[2018-03-24] MEDS ORDERED: BENADRYL PO PRN (20:11)
[2018-03-24] MEDS ORDERED: DULCOLAX PR PRN (20:11)
[2018-03-24] MEDS ORDERED: CYTOTEC PR PRN (20:11)
[2018-03-24] MEDS ORDERED: SODIUM CHLORIDE FLUSH SYRINGE 10 ML IV PRN (20:11)
[2018-03-24] MEDS ORDERED: MILK OF MAGNESIA PO PRN (20:11)
[2018-03-24] MEDS ORDERED: LANSINOH TP PRN (20:11)
[2018-03-24] MEDS ORDERED: ZOFRAN IV PRN (20:11)
[2018-03-24] MEDS: MOTRIN PO SCH (21:42)
[2018-03-24] MEDS ORDERED: MINERAL OIL PO PRN (22:00)
[2018-03-24] MEDS: TYLENOL PO PRN (22:56)
[2018-03-25] MEDS: MOTRIN PO SCH ×4 (03:34→20:28)
[2018-03-25 04:50] LABS: Hematocrit 37.1 % (30.3-42.9); Hemoglobin 12.6 gm/dl (10.1-14.3)
[2018-03-25] MEDS: TYLENOL PO PRN ×2 (05:40→22:34)
--- NOTE | 2018-03-25 06:18 | Progress Note ---
Assessment and Plan Pt is approx 12 hours post vaginal delivery MGSO4 infusing @ 1gm/hr FF @ umb Lochia is small. Laceration repair intact. Perineum intact Pt guards lower abdomen when palpated. BP 122/61 @ 0200 this AM Pt is w/o ISIDRO, blurred vision, chest pain. H&H pending. P: continue pathway Pt reassured PP pain is best controlled with Motrin. MGSO4 until [address] Starks consulted. Subjective - Subjective Date of service: 03/25/18 ( pt resting c/o lower abd pain "when it contracts") Principal diagnosis: Day # 1 s/p vag delivery; Preeclampsia-MGSO4 Patient reports: voiding normally, pain poorly controlled (pt is having exaggerated PP involution pain) [place]: doing well Objective - Vital Signs Latest vital signs: Vital Signs Temp Pulse Resp BP BP Pulse Ox 03/25/18 02:35 85 20 122/61 95 03/25/18 00:56 97.8 F 88 20 130/79 95 03/24/18 22:20 87 20 141/96 03/24/18 20:25 98.3 F 85 20 143/90 96 03/24/18 19:09 72 153/99 03/24/18 18:55 78 155/103 03/24/18 18:39 89 154/99 03/24/18 18:25 85 147/92 03/24/18 18:09 82 145/90 03/24/18 17:54 86 146/89 03/24/18 17:40 88 100 03/24/18 17:39 88 146/89 03/24/18 17:35 87 99 03/24/18 17:30 74 100 03/24/18 17:25 88 100 03/24/18 17:24 88 145/83 03/24/18 17:20 74 100 03/24/18 17:15 83 100 03/24/18 17:10 75 142/83 100 03/24/18 17:03 81 100 03/24/18 16:58 74 100 03/24/18 16:54 77 142/85 03/24/18 16:53 83 100 03/24/18 16:48 83 100 03/24/18 16:43 77 100 03/24/18 16:39 80 145/85 03/24/18 16:38 90 100 03/24/18 16:37 81 139/82 03/24/18 16:35 79 141/84 03/24/18 16:33 78 150/90 100 18 16:31 74 136/83 03/24/18 16:29 77 135/80 18 16:28 84 100 03/24/18 16:26 77 136/83 03/24/18 16:25 76 136/83 03/24/18 16:23 98.4 F 80 16 143/85 100 03/24/18 16:21 80 139/82 03/24/18 16:19 78 139/81 03/24/18 16:18 78 100 03/24/18 16:17 83 144/83 03/24/18 16:15 86 138/82 03/24/18 16:13 75 133/77 100 03/24/18 16:11 76 143/80 03/24/18 16:09 72 141/78 03/24/18 16:08 79 99 03/24/18 16:07 87 147/84 03/24/18 16:05 75 146/74 03/24/18 16:03 80 143/71 03/24/18 16:02 88 100 03/24/18 16:01 78 151/85 03/24/18 15:59 83 159/90 03/24/18 15:57 82 149/86 03/24/18 15:56 84 94 03/24/18 15:55 82 140/87 03/24/18 15:53 86 173/90 03/24/18 15:51 86 97 03/24/18 15:50 80 88 03/24/18 15:49 97 H 159/90 03/24/18 15:47 68 134/75 03/24/18 15:45 82 137/75 95 03/24/18 15:44 82 94 03/24/18 15:43 67 133/71 03/24/18 15:40 77 94 03/24/18 15:37 84 94 03/24/18 15:35 83 94 03/24/18 15:30 84 98 03/24/18 15:29 83 173/93 0 L 03/24/18 14:56 68 136/76 03/24/18 14:52 72 82 L 03/24/18 14:47 74 99 03/24/18 14:46 16 87 03/24/18 14:42 75 98 03/24/18 14:40 63 84 03/24/18 14:37 85 100 03/24/18 14:31 81 100 03/24/18 14:28 86 90 03/24/18 14:27 89 158/99 100 03/24/18 14:22 82 100 03/24/18 14:17 68 99 03/24/18 14:12 78 98 03/24/18 14:07 74 98 03/24/18 14:02 76 99 03/24/18 13:57 86 99 03/24/18 13:55 69 129/76 03/24/18 13:52 81 99 03/24/18 13:47 67 98 03/24/18 13:42 75 99 03/24/18 13:37 78 98 03/24/18 13:32 71 99 03/24/18 13:27 77 99 03/24/18 13:25 83 119/81 94 03/24/18 13:22 78 94 03/24/18 13:18 78 94 03/24/18 13:17 79 96 03/24/18 13:12 78 96 03/24/18 13:07 74 94 03/24/18 13:02 78 95 03/24/18 13:01 83 94 03/24/18 12:57 74 94 03/24/18 12:56 82 94 03/24/18 12:55 71 121/76 03/24/18 12:52 79 95 03/24/18 12:51 79 94 03/24/18 12:47 78 95 03/24/18 12:44 88 94 03/24/18 12:42 85 96 03/24/18 12:37 81 96 03/24/18 12:35 83 94 03/24/18 12:32 75 95 03/24/18 12:29 81 93 03/24/18 12:27 74 96 03/24/18 12:26 88 149/83 03/24/18 12:22 70 97 03/24/18 12:20 72 148/78 03/24/18 12:18 88 94 03/24/18 12:17 67 95 03/24/18 12:11 73 96 03/24/18 12:07 74 96 03/24/18 12:04 78 94 03/24/18 12:01 77 95 03/24/18 11:56 86 144/94 95 03/24/18 11:51 79 96 03/24/18 11:46 79 96 03/24/18 11:43 98.4 F 16 03/24/18 11:42 82 97 03/24/18 11:25 74 136/84 03/24/18 08:25 79 80 L 03/24/18 08:22 66 97 03/24/18 08:17 61 96 03/24/18 08:12 70 97 03/24/18 08:09 65 92 03/24/18 08:07 68 98 03/24/18 08:04 97.7 F 75 15 137/86 137/86 98 03/24/18 08:03 71 135/83 03/24/18 08:02 83 97 03/24/18 07:56 59 L 97 03/24/18 07:55 64 92 03/24/18 07:51 65 95 03/24/18 07:50 69 93 03/24/18 07:46 59 L 95 03/24/18 07:45 62 94 03/24/18 07:41 60 94 03/24/18 07:40 58 L 94 03/24/18 07:36 61 95 03/24/18 07:31 62 95 03/24/18 07:30 59 L 94 03/24/18 07:26 60 95 03/24/18 07:21 57 L 96 03/24/18 07:16 57 L 95 03/24/18 07:11 62 95 03/24/18 07:09 60 94 03/24/18 07:06 60 96 03/24/18 07:01 64 85 03/24/18 06:49 62 97 03/24/18 06:44 59 L 95 03/24/18 06:43 56 L 94 03/24/18 06:39 69 94 03/24/18 06:38 59 L 94 03/24/18 06:34 59 L 96 03/24/18 06:32 68 94 03/24/18 06:29 58 L 97 03/24/18 06:24 65 95 03/24/18 06:21 65 94 03/24/18 06:19 60 95 03/24/18 06:14 63 95 Intake and Output 03/24/18 03/24/18 03/25/18 14:59 22:59 06:59 Intake Total 769.833 480 Output Total 800 1800 Balance -30.167 -1320 Intake: IV 529.833 Lactated Ringers 1,000 ml 520.833 @ 125 mls/hr IV DIRECT KIRBY Rx#:[id number] PITOCin/NS 30 UNIT/500ML 9.0 30 units In 500 ml @ 4 mls/hr IV TITR KIRBY Rx#: [id number] Oral 240 480 Output: Urine 800 1800 Void 800 1800 Other: Total, Intake Amount 240 240 Total, Output Amount 800 1800 # Voids Void 1 Estimated Blood Loss 200 - Exam Breasts: Present: normal Cardiovascular: Present: Regular rate Lungs: Present: Clear to auscultation, Normal air movement Abdomen: Present: normal appearance, soft, normal bowel sounds Uterus: Present: normal, firm, fundal height at umbilicus Extremities: Present: normal Deep Tendon Reflex Grade: Normal +2 Incision: Present: normal, dry, intact - Labs Labs: Abnormal lab results 03/24/18 03/24/18 03/25/18 Range/Units 15:56 21:19 04:20 Magnesium 3.30 H 4.00 H 5.30 H (1.7-2.3) mg/dL
[2018-03-26] MEDS: MOTRIN PO SCH ×2 (05:12→17:15)
[2018-03-26] MEDS ORDERED: BOOSTRIX IM ONE (06:00)
--- NOTE | 2018-03-26 08:35 | Discharge Summary ---
Providers - Providers Date of Admission: 03/23/18 01:27 Date of discharge: 03/26/18 Attending physician: SHANTAL CASTANEDA 03/24/18 20:11 Consult to Client Service Supervisor [CONS] Routine Reason For Exam: assistance with , SNS Primary care physician: SHANTAL CASTANEDA Hospitalization Reason for admission: pre-e, IOL Condition: Good Pertinent studies: H&H 12.6/37.1 Procedures: Hospital course: labor and course complicated by pre-eclampsia. Disposition: - TO HOME OR SELFCARE - Discharge Diagnoses (1) Pre-eclampsia Status: Acute Qualifiers: Trimester: third trimester Qualified Code(s): O14.93 - Unspecified pre- eclampsia, third trimester (2) Spontaneous vaginal delivery Status: Acute Core Measure Documentation - Palliative Care Palliative Care/ Comfort Measures: Not Applicable - Core Measures Any of the following diagnoses?: none Exam - Constitutional Vitals: Temp Pulse Resp BP Pulse Ox 98.5 F 72 18 136/68 98 03/26/18 00:25 03/26/18 00:25 03/26/18 06:12 03/26/18 00:25 03/26/18 00:25 General appearance: Present: no acute distress, well-nourished - EENT Eyes: Present: PERRL ENT: hearing intact, clear oral mucosa - Neck Neck: Present: supple, normal ROM - Respiratory Respiratory effort: normal Respiratory: bilateral: CTA - Cardiovascular Heart Sounds: Present: S1 & S2. Absent: rub, click - Extremities Extremities: pulses symmetrical, No edema Peripheral Pulses: within normal limits - Abdominal General gastrointestinal: Present: soft, non-tender, non-distended, normal bowel sounds Female genitourinary: Present: normal - Integumentary Integumentary: Present: clear, warm, dry - Musculoskeletal Musculoskeletal: gait normal, strength equal bilaterally - Psychiatric Psychiatric: appropriate mood/affect, intact judgment & insight - Neurologic Neurologic: CNII-XII intact, moves all extremities - Additional findings Additional findings: Fundus firm, lochia scant, no visual changes/epigastric pain or ISIDRO, H&H stable , Plan Activity: no restrictions Diet: regular Follow up with: SHANTAL CASTANEDA MD [Primary Care Provider] - 7 Days (Congratulations! Please call [phone] to schedule your blood pressure check in 1 week. Call for any concerns or if you have a headache, changes to your vision or upper abdominal pain.) Prescriptions: Ibuprofen [Motrin 600 MG tab] 600 mg PO Q6HR PRN #30 tablet PRN Reason: involution pain
[2018-03-26] MEDS ORDERED: MOTRIN PO ONE (17:25)
[2018-03-26 18:19] VITALS: BP 114/94
== END 2018-03-26 17:19 | disposition home or self-care (01) | DRG 774 ==
LOC: TRG 22:29 → OBSVTOIN 03-23 01:27 → LD 03-23 01:27 → OB 03-24 20:12
PROVIDERS: ADMIT Obstetrics & Gynecology; ATTEND Obstetrics & Gynecology
PROC: 10E0XZZ Delivery of Products of Conception, External Approach (ICD-10-PCS; principal; 2018-03-24)
PROC: 0HQ9XZZ Repair Perineum Skin, External Approach (ICD-10-PCS; 2018-03-24)
PROC: 3E0R3BZ Introduction of Anesthetic Agent into Spinal Canal, Percutaneous Approach (ICD-10-PCS; 2018-03-24)
PROC: 00HU33Z Insertion of Infusion Device into Spinal Canal, Percutaneous Approach (ICD-10-PCS; 2018-03-24)
PROC: 3E033VJ Introduction of Other Hormone into Peripheral Vein, Percutaneous Approach (ICD-10-PCS; 2018-03-24)
PROC: 10907ZC Drainage of Amniotic Fluid, Therapeutic from Products of Conception, Via Natural or Artificial Opening (ICD-10-PCS; 2018-03-24)
DX: O14.94 Unspecified pre-eclampsia, complicating childbirth (principal); O76 Abnormality in fetal heart rate and rhythm complicating labor and delivery; J06.9 Acute upper respiratory infection, unspecified; O99.52 Diseases of the respiratory system complicating childbirth; O99.824 Streptococcus B carrier state complicating childbirth; O70.0 First degree perineal laceration during delivery; Z3A.36 36 weeks gestation of pregnancy; Z37.0 Single live birth; Z80.3 Family history of malignant neoplasm of breast; Z80.41 Family history of malignant neoplasm of ovary; Z80.0 Family history of malignant neoplasm of digestive organs; Z91.018 Allergy to other foods
CPT/HCPCS: 36415; 80307; 81001; 82565; 83615; 83735; 84156; 84450; 84460; 84550; 85007; 85014; 85018; 85025; 85027; 86592; 86850; 86900; 86901; 88307; 99211; G0463; J0290; J2590; J3010; J3475; J7120